=== PATIENT | female | born 1955 | race Caucasian/White ===

== ENCOUNTER 2016-11-18 19:14 | Observation (INO) | payer MEDICARE, OTHER ==
[~2016-11-18] VITALS: Ht 157.5 cm; Wt 75.7 kg
[~2016-11-18 19:14] MED LIST: FETZIMA20 M1 PO; FETZIMA40 M1 PO; LEVOTHYROXINE75 MCG PO; LISINOPRIL10 M1 PO; LITHIUM CARBON300 M4 PO; OLANZAPINE10 M1 PO; OXYBUTYNIN CHLO10 M1 PO; PROPRANOLOL HCL10 M1 PO; SIMVASTATIN80 M1 PO; TRAZODONE HCL100 M1 PO; VITAMIN D1000 UNIT PO
--- NOTE | 2016-11-18 20:19 | ED INFLUENZA/URI COMPLAINT ---
History of Present Illness General Chief Complaint: General Adult Stated Complaint: PER BROTHER VOMITING, DEHYDRATION? Source: patient, family Exam Limitations: no limitations Vital Signs & Intake/Output Vital Signs & Intake/Output Vital Signs Date Time Temp Pulse Resp B/P Pulse O2 O2 Flow FiO2 Ox Delivery Rate 11/19 0745 98.9 110 18 163/90 99 Room Air 11/19 0534 97.9 97 18 147/73 96 11/19 0300 98.9 102 18 140/89 5 11/19 0052 99.6 105 20 158/74 98 Room Air 11/18 2209 99.4 109 18 136/81 100 Room Air 11/18 2017 119 132/97 11/18 1952 96.8 124 26 97 Room Air ED Intake and Output 11/19 0000 11/18 1200 Intake Total 1000 Output Total Balance 1000 Intake, IV 1000 Patient 167 lb Weight Allergies Coded Allergies: Penicillins (Mild, "CHILDHOOD RASH" 11/18/16) Triage Note: TRIAGE: PT TO ER WITH BROTHER C/C N/V X 2 DAYS. PT STATES SHE FEELS WEAK. BROTHER STATES SHE HAS BEEN UNABLE TO TOLERATE ANYTHING PO AND IS PROBABLY DEHYDRATED. DENIES DIARRHEA. DENIES URINARY S/S. DENIES ABDOMINAL PAIN. UNABLE TO OBTAIN MANUAL OR AUTOMATIC B/P AT TRIAGE. ELECTRICIAN YARD AWARE OF SAME. Triage Nurses Notes Reviewed? yes HPI: This patient is a 61-year-old female who presented to the emergency department today accompanied by her brother for evaluation of nausea and vomiting. The patient reported that her symptoms began yesterday. She reported that she has been vomiting, "all day long." She denied any blood in the vomitus. She reported that she has not had anything to eat or drink in almost 2 days. She reported feeling weak. The patient denied any fevers, chills, difficulty breathing, abdominal pain, or any urinary symptoms. She reported that she was having some chest pain earlier in the day, but not currently. (EMMETT ENGLE,JAM) Reconcile Medications Cholecalciferol (Vitamin D3) (Vitamin D) 1,000 UNIT TABLET 2 TAB PO DAILY SUPPLEMENT (Reported) Desvenlafaxine Succinate (Pristiq ER) 100 MG TAB.ER.24H 1 TAB PO DAILY MENTAL HEALTH (Reported) Hyoscyamine Sulfate (Levsin-Sl) 0.125 MG TAB.SUBL 1-2 TAB SL Q4P PRN abdominal cramps Levothyroxine Sodium 75 MCG TABLET 1 TAB PO DAILY HYPOTHYROID (Reported) Lisinopril 10 MG TABLET 1 TAB PO DAILY HEART HEALTH (Reported) Mirtazapine 15 MG TABLET 1 TAB PO QPM MENTAL HEALTH (Reported) Ondansetron (Zofran Odt) 4 MG TAB.RAPDIS 1 TAB SL TID PRN nausea Oxybutynin Chloride (Oxybutynin Chloride ER) 10 MG TAB.ER.24 1 TAB PO DAILY BLADDER HEALTH (Reported) Propranolol HCl 10 MG TABLET 1 TAB PO QPM TREMORS (Reported) Quetiapine Fumarate 200 MG TABLET 1 TAB PO QPM MENTAL HEALTH (Reported) Simvastatin (Simvastatin*) 80 MG TABLET 1 TAB PO DAILY CHOLESTEROL HEALTH ( Reported) Trazodone HCl 50 MG TABLET 1 TAB PO QPM MENTAL HEALTH (Reported) Zolpidem Tartrate 5 MG TABLET 2 TAB PO QHS SLEEP (Reported) (MIKAEL TEJADA,JER) Past History Travel History Traveled to [place] past 21 day No Medical History Any Pertinent Medical History? see below for history Neurological: seizure (?details unclear from history) EENT: NONE Cardiovascular: hypertension, hyperlipidemia Respiratory: obstructive sleep apnea (uses CPAP), USES CPAP Gastrointestinal: NONE Hepatic: NONE Renal: S/P Acute renal failure in early 07/2016 related to too high a prescribed dose of Colona (900mg daily instead of only 600mg/day or less); resolved on medical floor Musculoskeletal: NONE Psychiatric: bipolar disease, insomnia Endocrine: hypothyroidism, S/P recent hypercalcemia secondary to Colona, per endocrine (Dr. Roberts) Blood Disorders: NONE Cancer(s): NONE NURSING SCHEDULER/Reproductive: NONE History of MRSA: No History of VRE: No History of CDIFF: No Influenza Vaccine: 07/13/15 Surgical History Surgical History: non-contributory Psychosocial History Who do you live with Brother Services at Home None What is your primary language Frisian Tobacco Use: Never used ETOH Use: denies use Illicit Drug Use: denies illicit drug use Family History Family History, If Any: grandfather Myocardial infarction Hx Contributory? No (EMMETT ENGLE,JAM) Review of Systems Review of Systems Constitutional: Reports: see HPI. EENTM: Reports: no symptoms. Respiratory: Reports: no symptoms. Cardiovascular: Reports: see HPI. GI: Reports: see HPI. Genitourinary: Reports: no symptoms. Musculoskeletal: Reports: no symptoms. Skin: Reports: no symptoms. Neurological/Psychological: Reports: no symptoms. All Other Systems: Reviewed and Negative (JAM CHRISTINE PA-C) Physical Exam Physical Exam Ears, Nose, Throat: normal ENT inspection, hearing grossly normal, pharynx normal, dry mucous membranes Comments: Well-developed well-nourished person in mild distress HEENT: PERRLA bilaterally Nose is atraumatic. Neck: Supple. No lymphadenopathy Back: Normal inspection Cardiovascular: Tachycardic with a regular rhythm without murmurs Respiratory: Chest nontender. No respiratory distress. Breath sounds clear to auscultation bilaterally with no wheezes, rales, rhonchi Abdomen: Soft, nontender and nondistended with normoactive bowel sounds in organomegaly. No peritoneal signs. No rebound or guarding Extremity: Normal and equal pulses. Neuro: Alert oriented x3, cranial nerves II through XII grossly intact. Skin: No appreciable rash on exposed skin, skin is warm and dry. Psych: Mood and affect is normal Core Measures Severe Sepsis Present: No Septic Shock Present: No (JAM CHRISTINE PA-C) Progress Differential Diagnosis: influenza, neutropenia, otitis, pneumonia, pharyngitis, sinusitis Plan of Care: Orders Procedure Date/time Status Clear Liquid Diet 11/19 B Active Discharge Patient 11/19 1006 Active TROPONIN LEVEL 11/19 0355 Complete LACTIC ACID 11/[address] in observation 11/19 0027 Active Patient Data 11/19 26 Active Code Status 11/19 0027 Active Intake & Output 11/18 2322 Active LACTIC ACID 11/18 2320 Complete EKG 11/18 2052 Active RAPID VIRAL INFLUENZA A 11/18 2019 Complete TROPONIN LEVEL 11/18 2019 Complete MAGNESIUM 11/18 2019 Complete LIPASE 11/18 2019 Complete DIRECT BILIRUBIN 11/18 2019 Complete COMPREHENSIVE METABOLIC PANEL 11/18 2019 Complete CBC WITHOUT DIFFERENTIAL 11/18 2019 Complete AMYLASE 11/18 2019 Complete Laboratory Tests 11/19/16 0402: Troponin I 0.05 11/19/16 0402: Lactic Acid 2.1 11/19/16 0013: Lactic Acid 4.0 H 11/18/16 2141: Anion Gap 20 H, Estimated GFR 46 L, BUN/Creatinine Ratio 24.2, Glucose 191 H, Calcium 11.3 H, Magnesium 2.3, Total Bilirubin 0.5, Direct Bilirubin 0.3, AST 20, ALT 32, Alkaline Phosphatase 105, Troponin I 0.04, Total Protein 7.9, Albumin 4.8, Globulin 3.1, Albumin/Globulin Ratio 1.5, Amylase 68, Lipase 133, CBC w Diff NO MAN DIFF REQ, RBC 6.41 H, MCV 73.8 L, MCH 23.5 L, RDW 16.9 H, MPV 8.9, Gran % 90.0 H, Lymphocytes % 3.0 L, Monocytes % 6.9, Eosinophils % 0, Basophils % 0.1, Absolute Granulocytes 11.6 H, Absolute Lymphocytes 0.4 L, Absolute Monocytes 0.9 H, Absolute Eosinophils 0, Absolute Basophils 0, PUBS MCHC 31.9 L 11/18/162125: Magnesium Cancelled 11/18/162052: Troponin I Cancelled Diagnostic Imaging: Viewed by Me: Radiology Read. Discussed w/RAD: Radiology Read. Radiology Impression: PATIENT: RADHA MCNEAL PRESENT AGE: 61 PATIENT ACCOUNT NO: [id number] : 59 LOCATION: [facility] ORDERING PHYSICIAN: JAM CHRISTINE PA-C SERVICE DATE: 11/18/16 EXAM TYPE: RAD - XRY-PORTABLE CHEST XRAY EXAMINATION: XR PORTABLE CHEST CLINICAL INFORMATION: Chest pain. Nausea. Vomiting. COMPARISON: Chest x-ray 09/30/2012 TECHNIQUE: Portable AP portable view of the chest was obtained. 9:44 PM FINDINGS: There are 2 adjacent radiopaque about 1 cm foreign bodies projecting over the mid chest and EKG lead over the upper chest. There is a large hiatal hernia present. Heart size is normal. No pulmonary vascular congestion. No pleural effusion or pneumothorax. IMPRESSION: Heart size is normal. Lungs are clear. DICTATED BY: WILDER BOSS MD DATE/TIME DICTATED:11/18/162224 CHIEF POWER DISPATCHER:PRABHJOT DATE/TIME TRANSCRIBED:11/18/162224 CONFIDENTIAL, DO NOT COPY WITHOUT APPROPRIATE AUTHORIZATION. <Electronically signed in Other Vendor System> SIGNED BY: WILDER BOSS MD 11/18/162229 Initial ED EKG: normal intervals, nonspecific ST T wave chg, 117 beats minute, sinus tachycardia, ST depressions in leads V3, V4, and V5 Hand-Off Endorsed To: TONY TEJADA,MESERET [place] Pending: labs, other Comments: 11/18/2016 11:29:02 PM: I was at this patient's bedside for reevaluation. She is still feeling nauseous. Due to this patient's EKG changes, I discussed this patient with Dr. Pineda who agreed with the plan to have this patient stated this here in the emergency department for observation, repeat troponin level, repeat EKG, gentle hydration, and antibiotics. (EMMETT ENGLE,JAM) Radiology Impression: PATIENT: RADHA MCNEAL PRESENT AGE: 61 PATIENT ACCOUNT NO: [id number] : 59 LOCATION: [facility] ORDERING PHYSICIAN: MESERET PINEDA MD SERVICE DATE: 11/19/16 EXAM TYPE: CAT - CT ABD & PELVIS W/O IV CONTRAS EXAMINATION: CT ABDOMEN AND PELVIS WITHOUT CONTRAST CLINICAL INFORMATION: Vomiting. Elevated lactic acid. COMPARISON: 05/25 TECHNIQUE: Multidetector volumetric imaging was performed from the superior aspect of the liver through the pubic symphysis. Sagittal and coronal reformatted images were obtained on the technologist's workstation. DLP: 314 mGy -cm FINDINGS: LUNG BASES: The visualized lung bases are unremarkable. LIVER, GALLBLADDER, AND BILIARY TREE: The liver is normal in size, shape, and attenuation. No focal hepatic lesion or biliary ductal dilatation is present. The gallbladder is unremarkable with no evidence of radiopaque gallstones, gallbladder wall thickening, or obvious pericholecystic inflammatory changes. PANCREAS: Unremarkable. SPLEEN: Unremarkable. ADRENAL GLANDS: Unremarkable. KIDNEYS AND URETERS: The kidneys are normal in size, shape, and attenuation. No hydronephrosis, hydroureter, or calculi seen. No perinephric stranding. BLADDER: The bladder is distended without wall thickening. GASTROINTESTINAL TRACT: Moderate hiatal hernia. The small bowel appears unremarkable. No obstruction. Normal appendix. No colonic wall thickening or inflammatory change. No free air or free fluid. ABDOMINAL WALL: No significant hernia is appreciated. LYMPH NODES : Normal. VASCULAR: Unremarkable. PELVIC VISCERA: The uterus appears atrophic. No adnexal mass. OSSEOUS STRUCTURES: No acute or suspicious osseous abnormality. Mild degenerative changes of the spine and hips. IMPRESSION: No acute finding of the abdomen or pelvis. No acute inflammatory changes. Moderate hiatal hernia. Significantly distended bladder. No wall thickening. DICTATED BY: JOSE HUBER MD DATE/TIME DICTATED:11/19/16407 CHIEF POWER DISPATCHER:PRABHJOT DATE/TIME TRANSCRIBED:11/19/16407 CONFIDENTIAL, DO NOT COPY WITHOUT APPROPRIATE AUTHORIZATION. <Electronically signed in Other Vendor System> SIGNED BY: JOSE HUBER MD 11/19/16 0414 Hand-Off Endorsed To: JER YOUSSEF MD Endorsed Time: 07 Pending: other (RE-EVAL) (MESERET PINEDA MD) Departure Departure Disposition: HOME OR SELF CARE Condition: Stable Referrals: MALIKA JIANG M.D. (PCP/Family) Departure Forms: Customer Survey General Discharge Information Observation Note Spoke With: MESERET PINEDA MD Physician Advisor Notified: MESERET PINEDA MD Place Patient In: ED Observation Rationale for Observation: My rational for observation is as follows [this patient is a 61-year-old female who presented to the emergency department today for evaluation of nausea and vomiting. EKG changes noted. Troponin 0.04. Elevated white blood cell count. This patient is still actively vomiting here in the emergency department. She should stay in ED observation overnight for gentle hydration with IV fluids, IV antiemetics, trend labs, serial troponins, serial EKGs, and close monitoring. Premature discharge could prove medically harmful.]. (EMMETT ENGLE,JAM) PA/TUBE CLEANING OPERATOR Co-Sign Statement Statement: ED Attending supervision documentation- [X] I saw and evaluated the patient. I have also reviewed all the pertinent lab results and diagnostic results. I agree with the findings and the plan of care as documented in the PA's/TUBE CLEANING OPERATOR's documentation. [X] I have reviewed the ED Record and agree with the PA's/TUBE CLEANING OPERATOR's documentation. [] Additions or exceptions (if any) to the PAs/TUBE CLEANING OPERATOR's note and plan are summarized below: [] (MESERET PINEDA MD) Departure Time of Disposition: 1004 Clinical Impression Primary Impression: Viral syndrome Secondary Impressions: Generalized anxiety disorder Additional Instructions: Clear liquids for 12-24 hours in small amounts until better. SURE TO STAY HYDRATED. FOLLOW-UP WITH YOUR PRIMARY CARE PHYSICIAN. RETURN FOR ANY WORSENING SYMPTOMS RO CONCERNS. Prescriptions: Current Visit Scripts Ondansetron (Zofran Odt) 1 TAB SL TID PRN nausea #15 TAB Hyoscyamine Sulfate (Levsin-Sl) 1-2 TAB SL Q4P PRN abdominal cramps #30 TAB (JER YOUSSEF MD) ED Attending Observation Initial Observation Note: I have seen and personally examined RADHA MCNEAL on 11/19/16 at 0027. I agree with the current emergency department documentation. The disposition (admission or discharge) is uncertain at this time, she needs a period of observation for the following reason(s): [Telemetry monitoring with serial enzymes and IV hydration. Patient has an abnormal EKG. If her troponin turned positive she'll require admission for cardiology consultation. If her troponin remains negative the patient will be table for discharge with outpatient management. Patient is also dehydrated and requiring IV fluids. We'll reevaluate to see if the patient is stable for discharge after 2 more liters of fluid.] The ED Nurse caring for this patient has been personally informed as to what the patient is being observed for. Observation Re-Evaluation: I have reevaluated RADHA MCNEAL on 11/19/16 at 0217. The physical findings that support the continued need to observe this patient include [patient continues to have dry heaving. Patient's lactic acid is 4.0 and she has an elevated anion gap. Her creatinine is 1.2 with a decreased GFR. Patient given IV Zofran. Patient continues to be hydrated. Patient going over for CAT scan of her abdomen and pelvis. She still has active bowel sounds. Her abdomen is soft and nontender.]. (TONY TEJADA,MESERET [place]) Observation Re-Evaluation: I have reevaluated RADHA MCNEAL on 11/19/16 at 0844. The physical findings that support the continued need to observe this patient include able to tolerate clear liquids but still reports feeling sick.. Observation Discharge: I have reevaluated RADHA MCNEAL on 11/19/16 at 1003. The patient is: (x): Stable for discharge (): To be admitted to Nursing Floor (): To be placed in Observation on Nursing Floor (): For transfer to other facility The patient was being observed for n/v/dehydration, anxiety As a result of that observation, I have determined that the patient may return home with clear liquid diet antiemetics. (JER YOUSSEF MD)
[2016-11-18] MEDS ORDERED: MIRTAZAPINE15 M2 PO (20:25)
[2016-11-18] MEDS ORDERED: ZOLPIDEM TARTRAT5 M1 PO (20:26)
[2016-11-18] MEDS ORDERED: QUETIAPINE FUM200 M1 PO (20:26)
[2016-11-18] MEDS ORDERED: TRAZODONE HCL50 M1 PO (20:26)
[2016-11-18] MEDS ORDERED: PRISTIQ ER100 MG PO (20:28)
[2016-11-18 21:50] LABS: ABSOLUTE BASOPHIL COUNT 0 /CUMM (0.0-0.2); ABSOLUTE EOSINOPHIL COUNT 0 /CUMM (0.0-0.7); ABSOLUTE GRANULOCYTE CT 11.6 /CUMM (1.4-6.5); ABSOLUTE LYMPH COUNT 0.4 /CUMM (1.2-3.4); ABSOLUTE MONOCYTE COUNT 0.9 /CUMM (0.10-0.60); BASOPHIL % 0.1 % (0.0-2.0); EOSINOPHIL % 0 % (0-5); HEMATOCRIT 47.3 % (37-47); MEAN CORPUSCULAR HGB 23.5 PG (27.0-31.0); MEAN CORPUSCULAR HGB CONC 31.9 G/DL (33.0-37.0); MEAN CORPUSCULAR VOLUME 73.8 FL (81.0-99.0); MEAN PLATELET VOLUME 8.9 FL (7.4-10.4); PLATELET COUNT 378 /CUMM (130-400); RBC DISTRIBUTION WIDTH 16.9 % (11.5-14.5); RED BLOOD CELL CT 6.41 /CUMM (4.20-5.40); WHITE BLOOD CELL COUNT 12.9 /CUMM (4.8-10.8)
--- NOTE | 2016-11-18 22:30 | RADIOLOGY REPORT ---
EXAMINATION: XR PORTABLE CHEST CLINICAL INFORMATION: Chest pain. Nausea. Vomiting. COMPARISON: Chest x-ray 09/30/2012 TECHNIQUE: Portable AP portable view of the chest was obtained. 9:44 PM FINDINGS: There are 2 adjacent radiopaque about 1 cm foreign bodies projecting over the mid chest and EKG lead over the upper chest. There is a large hiatal hernia present. Heart size is normal. No pulmonary vascular congestion. No pleural effusion or pneumothorax. IMPRESSION: Heart size is normal. Lungs are clear.
--- NOTE | 2016-11-19 04:14 | CT SCAN REPORT ---
EXAMINATION: CT ABDOMEN AND PELVIS WITHOUT CONTRAST CLINICAL INFORMATION: Vomiting. Elevated lactic acid. COMPARISON: 05/25/2007 TECHNIQUE: Multidetector volumetric imaging was performed from the superior aspect of the liver through the pubic symphysis. Sagittal and coronal reformatted images were obtained on the technologist's workstation. DLP: 314 mGy-cm FINDINGS: LUNG BASES: The visualized lung bases are unremarkable. LIVER, GALLBLADDER, AND BILIARY TREE: The liver is normal in size, shape, and attenuation. No focal hepatic lesion or biliary ductal dilatation is present. The gallbladder is unremarkable with no evidence of radiopaque gallstones, gallbladder wall thickening, or obvious pericholecystic inflammatory changes. PANCREAS: Unremarkable. SPLEEN: Unremarkable. ADRENAL GLANDS: Unremarkable. KIDNEYS AND URETERS: The kidneys are normal in size, shape, and attenuation. No hydronephrosis, hydroureter, or calculi seen. No perinephric stranding. BLADDER: The bladder is distended without wall thickening. GASTROINTESTINAL TRACT: Moderate hiatal hernia. The small bowel appears unremarkable. No obstruction. Normal appendix. No colonic wall thickening or inflammatory change. No free air or free fluid. ABDOMINAL WALL: No significant hernia is appreciated. LYMPH NODES: Normal. VASCULAR: Unremarkable. PELVIC VISCERA: The uterus appears atrophic. No adnexal mass. OSSEOUS STRUCTURES: No acute or suspicious osseous abnormality. Mild degenerative changes of the spine and hips. IMPRESSION: No acute finding of the abdomen or pelvis. No acute inflammatory changes. Moderate hiatal hernia. Significantly distended bladder. No wall thickening.
[2016-11-19] MEDS ORDERED: ZOFRAN ODT4 M1 SL (10:05)
[2016-11-19] MEDS ORDERED: LEVSIN-SL0.125 MG SL (10:05)
[2016-11-19 10:16] VITALS: BP 145/74
== END 2016-11-19 10:17 ==
LOC: ERH 19:14 → ERHI 11-19 01:12 → CMPBEDREQ 11-19 01:20 → ERHI 11-19 10:17
PROVIDERS: Physician Assistant; ADMIT Emergency Medicine
DX: B34.9 Viral infection, unspecified (principal); R11.2 Nausea with vomiting, unspecified; I10 Essential (primary) hypertension; E78.5 Hyperlipidemia, unspecified; F41.9 Anxiety disorder, unspecified; G47.33 Obstructive sleep apnea (adult) (pediatric); E03.9 Hypothyroidism, unspecified; E86.0 Dehydration
CPT/HCPCS: 6090; 74176; 87804; 87804-59; 93005; 93010; 96361; 96374; 96375; 96376; G0378; J2405; J2765

== ENCOUNTER 2016-11-28 19:11 | Inpatient (IN) | payer OTHER ==
[~2016-11-28] VITALS: Ht 157.5 cm; Wt 70.4 kg
[~2016-11-28 19:11] MED LIST changes: +LEVSIN-SL0.125 MG SL; +MIRTAZAPINE15 M2 PO; +PRISTIQ ER100 MG PO; +QUETIAPINE FUM200 M1 PO; +TRAZODONE HCL50 M1 PO; +ZOFRAN ODT4 M1 SL; +ZOLPIDEM TARTRAT5 M1 PO
--- NOTE | 2016-11-28 19:43 | ED PSYCHIATRIC COMPLAINT ---
History of Present Illness General Chief Complaint: Psychiatric Related Complaint Stated Complaint: PSYCH Source: patient, old records, EMS Exam Limitations: clinical condition, poor historian Vital Signs & Intake/Output Vital Signs & Intake/Output Vital Signs Date Time Temp Pulse Resp B/P Pulse O2 O2 Flow FiO2 Ox Delivery Rate 11/29 1319 99.3 100 18 155/86 98 Room Air 11/29 0917 99.0 100 16 153/94 97 Room Air 11/29 0631 98.4 121 20 145/91 95 Room Air 11/29 0630 Room Air 11/29 0430 99.7 100 18 158/104 95 Room Air 11/28 2213 99.8 98 18 158/88 98 Room Air 11/28 1921 99.9 103 17 162/87 97 Room Air ED Intake and Output 11/29 0000 11/28 1200 Intake Total Output Total Balance Patient 210 lb Weight Allergies Coded Allergies: Penicillins (Mild, "CHILDHOOD RASH" 11/18/16) Reconcile Medications Cholecalciferol (Vitamin D3) (Vitamin D) 1,000 UNIT TABLET 2 TAB PO DAILY SUPPLEMENT (Reported) Desvenlafaxine Succinate (Pristiq ER) 100 MG TAB.ER.24H 1 TAB PO QPM MENTAL HEALTH (Reported) Levothyroxine Sodium 75 MCG TABLET 1 TAB PO QAM HYPOTHYROID (Reported) Lisinopril 10 MG TABLET 1 TAB PO QAM HEART HEALTH (Reported) Mirtazapine 15 MG TABLET 1 TAB PO QPM MENTAL HEALTH (Reported) Oxybutynin Chloride (Oxybutynin Chloride ER) 10 MG TAB.ER.24 1 TAB PO QAM BLADDER HEALTH (Reported) Propranolol HCl 10 MG TABLET 1 TAB PO QPM TREMORS (Reported) Quetiapine Fumarate 200 MG TABLET 1 TAB PO QPM MENTAL HEALTH (Reported) Simvastatin (Simvastatin*) 80 MG TABLET 1 TAB PO QPM CHOLESTEROL HEALTH ( Reported) Trazodone HCl 50 MG TABLET 1 TAB PO QPM MENTAL HEALTH (Reported) Zolpidem Tartrate 5 MG TABLET 1-2 TAB PO QHS SLEEP (Reported) Triage Note: PT ABELARDO FROM HOME C/O PT WAS BROUGHT HERE ON A PEC FROM PD STATING THAT SHE WAS FOUND ON HER STREET FOR 3 HOURS IN HER CAR SITTING THERE AND STATING SHE DID NOT KNOW HOW TO GET HOME. THIS RN SPOKE WITH PT AND MOVED PT TO [facility] FOR MEDICAL EVAL. PT STATES HER STOMACH HURTS AND SHE TOOK PILLS BUT DOES NOT REMEMBER WHAT TIME, WHAT PILLS, OR WHAT IS HAPPENING. PT IS A&0X3. AWAITING PROVIDER EVAL. PT PLACED ON MONITOR. Triage Nurses Notes Reviewed? yes Onset: Just prior to arrival Duration: hour(s):, constant, continues in ED Timing: recent history Severity: severe Associated Symptoms: impaired concentration LMP (ages 10-50): hysterectomy : No Patient currently breastfeeds: No HPI: Patient was observed sitting in her car for several hours observed by her neighbor. She has slow mentation of verbalizes being sad and depressed wanting to without a specific plan. She denies fever chills nausea vomiting diarrhea abdominal pain chest pain shortness of breath headache dysuria rash bleeding. Crisis collateral information reviewed. (JER YOUSSEF MD) Past History Travel History Traveled to [place] past 21 day No Medical History Any Pertinent Medical History? see below for history Neurological: seizure (?details unclear from history) EENT: NONE Cardiovascular: hypertension, hyperlipidemia Respiratory: obstructive sleep apnea (uses CPAP), USES CPAP Gastrointestinal: NONE Hepatic: NONE Renal: S/P Acute renal failure in early 07/2016 related to too high a prescribed dose of [place] (900mg daily instead of only 600mg/day or less); resolved on medical floor Musculoskeletal: NONE Psychiatric: bipolar disease, insomnia Endocrine: hypothyroidism, S/P recent hypercalcemia secondary to [place], per endocrine (Dr. 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 No (JER YOUSSEF MD) Review of Systems Review of Systems Constitutional: Reports: no symptoms. EENTM: Reports: no symptoms. Respiratory: Reports: no symptoms. Cardiovascular: Reports: no symptoms. GI: Reports: no symptoms. Genitourinary: Reports: no symptoms. Musculoskeletal: Reports: no symptoms. Skin: Reports: no symptoms. Neurological/Psychological: Reports: see HPI, cognitive dysfunction, confusion, depressed. Hematologic/Endocrine: Reports: no symptoms. Immunologic/Allergic: Reports: no symptoms. All Other Systems: Reviewed and Negative (JER YOUSSEF MD) Physical Exam Physical Exam General Appearance: well developed/nourished, alert, awake, moderate distress Head: atraumatic Eyes: Bilateral: PERRL, EOMI. 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 yes 1 Depression/Hopelessness? yes 2 Previous Attempts/Psych Care yes 1 Rational Thinking Loss? yes 2 Single//? yes 1 Social Support? has support 0 Stated Future Intent? yes 2 Total 9 SAD PERSONS Done? yes (JER YOUSSEF MD) Progress Differential Diagnosis: drug intoxication, drug overdose, drug withdrawal, electrolyte abnormality, hypoglycemia Plan of Care: Orders Procedure Date/time Status Regular Diet 11/29 L Active Regular Diet 11/29 B Complete Admit to inpatient psych 11/29 1322 Active CULTURE,URINE 11/29 1322 Active BASIC METABOLIC PANEL 11/29 1322 Active Patient Data - inpatient psych 11/29 1045 Active Admit to inpatient psych 11/29 1045 Active Add-on Test (ER Only) 11/29 1021 Active URINE DRUG SCREEN FOR ER ONLY 11/29 0857 Complete URINALYSIS 11/29 0850 Complete Continuous Observation Monitor 11/29 0335 Active Add-on Test (ER Only) 11/29 0004 Active Vital Signs 11/29 UNK Active Nursing Misc 11/29 UNK Active Alternative Nursing Therapy 11/29 UNK Active Activity/Ambulation 11/29 UNK Active Continuous Observation Monitor 11/28 2335 Active TSH REFLEX 11/28 2004 Complete Continuous Observation Monitor 11/28 1941 Active ETHANOL 11/28 194 Complete COMPREHENSIVE METABOLIC PANEL 11/28 194 Complete CBC WITHOUT DIFFERENTIAL 11/28 1940 Complete ED CRISIS PSYCH CONSULT 11/28 194 Active Laboratory Tests 11/29/16 0850: Urine Opiates Screen < 100.00, Methadone Screen 69, Barbiturate Screen < 60, Ur Phencyclidine Scrn 7.00, Amphetamines Screen < 100, U Benzodiazepines Scrn < 85, Urine Cocaine Screen < 50, Urine Cannabis Screen < 5.00, Urine Color YEL, Urine Clarity CLEAR, Urine pH 6.0, Ur Specific [place] 1.025, Urine Protein TRACE H, Urine Ketones >=80, Urine Nitrite NEG, Urine Bilirubin NEG, Urine Urobilinogen 1.0, Ur Leukocyte Esterase TRACE H, Ur Microscopic SEDIMENT EXAMINED, Urine RBC RARE, Urine WBC RARE, Hyaline Casts RARE H, Urine Mucus RARE, Urine Hemoglobin NEG, Urine Glucose NEG 11/28/16 2004: Anion Gap 18 H, Estimated GFR > 60, BUN/Creatinine Ratio 8.8, Glucose 97, Calcium 10.1, Total Bilirubin 0.7, AST 22, ALT 32, Alkaline Phosphatase 81, Total Protein 6.5, Albumin 3.9, Globulin 2.6, Albumin/Globulin Ratio 1.5, TSH & T3 &Free T4 Intrp 0.897, CBC w Diff NO MAN DIFF REQ, RBC 5.46 H, MCV 72.9 L, MCH 23.7 L, RDW 17.1 H, MPV 8.6, Gran % 82.8 H, Lymphocytes % 10.3 L, Monocytes % 6.8, Eosinophils % 0, Basophils % 0.1, Absolute Granulocytes 7.5 H, Absolute Lymphocytes 0.9 L, Absolute Monocytes 0.6, Absolute Eosinophils 0, Absolute Basophils 0, PUBS MCHC 32.5 L, Serum Alcohol < 10.0 7:10 AM PATIENT SIGNED OUT TO ME BY DR YOUSSEF. PENDING CRISIS EVALUATION. NS ,POTASSIUM ORDERED. (ADRIEN LOVETT MD) Diagnostic Imaging: Viewed by Me: CT Scan. Discussed w/RAD: CT Scan. Radiology Impression: no acute abnormality, no fracture Hand-Off Endorsed To: ADRIEN LOVETT MD Endorsed Time: 0700 Pending: consult, labs (utox) (JER YOUSSEF MD) Departure Departure Disposition: STILL A PATIENT Condition: Stable Referrals: MALIKA JIANG M.D. (PCP/Family) Departure Forms: Customer Survey General Discharge Information (JER YOUSSEF MD) Departure Time of Disposition: 1322 Clinical Impression Primary Impression: Bipolar disorder current episode depressed Qualifiers: Current episode severity: unspecified Qualified Code: F31.30 - Bipolar disorder, current episode depressed, mild or moderate severity, unspecified Secondary Impressions: Hypokalemia Psych Admission Note Psychiatric Admission: I have seen and evaluated DEVENDRAJessyRADHA. I have also reviewed all the pertinent lab results and diagnostic results. RADHA MCNEAL will be admitted to our inpatient Psychiatric unit for treatment and care. (BONY TEJADA,ADRIEN)
[2016-11-28 20:21] LABS: ABSOLUTE BASOPHIL COUNT 0 /CUMM (0.0-0.2); ABSOLUTE EOSINOPHIL COUNT 0 /CUMM (0.0-0.7); ABSOLUTE GRANULOCYTE CT 7.5 /CUMM (1.4-6.5); ABSOLUTE LYMPH COUNT 0.9 /CUMM (1.2-3.4); ABSOLUTE MONOCYTE COUNT 0.6 /CUMM (0.10-0.60); BASOPHIL % 0.1 % (0.0-2.0); EOSINOPHIL % 0 % (0-5); GRANULOCYTE % 82.8 % (42.2-75.2); HEMATOCRIT 39.8 % (37-47); MEAN CORPUSCULAR HGB 23.7 PG (27.0-31.0); MEAN CORPUSCULAR HGB CONC 32.5 G/DL (33.0-37.0); MEAN CORPUSCULAR VOLUME 72.9 FL (81.0-99.0); MEAN PLATELET VOLUME 8.6 FL (7.4-10.4); PLATELET COUNT 336 /CUMM (130-400); RBC DISTRIBUTION WIDTH 17.1 % (11.5-14.5); RED BLOOD CELL CT 5.46 /CUMM (4.20-5.40); WHITE BLOOD CELL COUNT 9.1 /CUMM (4.8-10.8)
--- NOTE | 2016-11-28 21:24 | ED PSY CRISIS COLLATERAL NOTE ---
Collateral Note Collateral Note Family/Inform/Michael Contacts: Crisis met with patients brother Simone ([phone]), sister Madie ([phone]), and brother in law Micheal ([phone]). Patient resides with her brother Simone, and he was informed today when he got home from work, that their neighbor called the [employer] today because they found patient sitting in her car parked on the side of their street for 2-3 hours. Patients sister received call from Rahul JONES that she was being brought to ED due to being found disoriented. Simone reports that about 10 days ago patient was seen at ED due to flu symptoms and since then has been very isolative at home and has not left the house up until today. He encouraged her to atleast go out to get groceries or visit their mother today. Patient did end up leaving the house today and then Simone left for work. Patient has poor memory of today and does not recall her neighbor finding her on the side of the road. Patients family reports that patient has no hx of similar behaviors. She is currently in treatment with Dr. Carballo at OP and is med compliant.
--- NOTE | 2016-11-28 23:10 | CT SCAN REPORT ---
EXAMINATION: CT HEAD WITHOUT CONTRAST CLINICAL INFORMATION: Altered mental status COMPARISON: 08/05/2016 TECHNIQUE: Contiguous axial imaging was performed from the skull base to vertex without intravenous administration of contrast. DLP: 600.71 mGy-cm FINDINGS: There is no evidence of acute intracranial hemorrhage or territorial infarction. No abnormal mass effect or midline shift is seen. Thakkar to white matter differentiation is well preserved. No extra-axial fluid collections are identified. The ventricles are normal in size. There is mild periventricular white matter hypoattenuation consistent with chronic small vessel ischemic disease. The osseous structures and soft tissues are normal. The mastoid air cells and visualized portions of the paranasal sinuses are well aerated. IMPRESSION: No acute intracranial pathology.
--- NOTE | 2016-11-29 10:19 | ED PSYCH CRISIS CONSULTATION ---
Crisis Consult Basic Assessment Date of Consult: 11/29/16 Responsible Person/Accompanied By: Madie Wiggins sister and Gaston freitas Insurance Authorization: Insurance #1: Insurance name: [employer] MEDICARE COMPLETE Phone number: Policy number: [id number] Group number: [id number] Authorization number: ED Provider: Patient's ED Provider: JER YOUSSEF MD Primary Care Physician: Patient's PCP: MALIKA JIANG M.D. PCP's Phone Number: Current Psychiatrist: Abdiel Betancourt MD Chief Complaint: Psychiatric Related Extremely depressed S.I. Patient's Quote: "i'm ready to give up. I cant cope anymore" Present Illness: Patient is a 61 year old, never woman who was brought to the [facility] by her brother and sister after she had been seen sitting in her parked car for 3+ hours, and seemed confused. Patient says that she feels she is ready to give up and that she "cant take it anymore". Patient has been complaining a great deal lately about not feeling well, and having problems eating and sleeping, and feeling dehydrated all of the time. Patient had been admitted to [facility] several years ago with lithium toxicity, and thr Lithiumk was stopped, and patients family observed that she was doing better than she had been doing for many years, and was actually more animated. Patient reports that she has "fallen off" drastically, and that she has no self esteem, and feels unable to function anymore, and that she can contribute to nothing anymore Patient has had numerous hospitalizations in the past and most at [facility]. there have been more than 12. She has not required admission to in-patient unit for a few years, and benefitted from IOP following last admission. Patient focuses on somatic issues, and feels that :"I have gone into my isolated world again" Patient expresses suicidal ideation Patient's Address: [address] [place] [address] Other Phone Number: Who Do You Live With? Brother Family/Informants Interviewed: sister Madie Wiggins brother Gaston Adam Allergies - Coded Allergies: Penicillins (Mild, "CHILDHOOD RASH" 11/18/16) Current Medications - Scheduled Medications Cholecalciferol (Vitamin D3) (Vitamin D) 1,000 UNIT TABLET 2 TAB PO DAILY SUPPLEMENT (Reported) Entered as Reported by LUIS MCDONNELL on 07/20/16 1306 Desvenlafaxine Succinate (Pristiq ER) 100 MG TAB.ER.24H 1 TAB PO QPM MENTAL HEALTH #30 (Reported) Entered as Reported by ADRIANNA WILSON on 11/18/162027 Levothyroxine Sodium 75 MCG TABLET 1 TAB PO QAM HYPOTHYROID #30 (Reported) Entered as Reported by LUIS MCDONNELL on 07/20/16 1302 Lisinopril 10 MG TABLET 1 TAB PO QAM HEART HEALTH #30 (Reported) Entered as Reported by LUIS MCDONNELL on 07/20/16 1303 Mirtazapine 15 MG TABLET 1 TAB PO QPM MENTAL HEALTH #30 (Reported) Entered as Reported by ADRIANNA WILSON on 11/18/162024 Oxybutynin Chloride (Oxybutynin Chloride ER) 10 MG TAB.ER.24 1 TAB PO QAM BLADDER HEALTH #30 (Reported) Entered as Reported by LUIS MCDONNELL on 07/20/16 1304 Propranolol HCl 10 MG TABLET 1 TAB PO QPM TREMORS #30 (Reported) Entered as Reported by LUIS MCDONNELL on 07/20/16 1311 Quetiapine Fumarate 200 MG TABLET 1 TAB PO QPM MENTAL HEALTH #30 (Reported) Entered as Reported by ADRIANNA WILSON on 11/18/162025 Simvastatin (Simvastatin*) 80 MG TABLET 1 TAB PO QPM CHOLESTEROL HEALTH #30 ( Reported) Entered as Reported by LUIS MCDONNELL on 07/20/16 1306 Trazodone HCl 50 MG TABLET 1 TAB PO QPM MENTAL HEALTH #90 (Reported) Entered as Reported by ADRIANNA WILSON on 11/18/162025 Zolpidem Tartrate 5 MG TABLET 1-2 TAB PO QHS SLEEP #60 (Reported) Entered as Reported by ADRIANNA WILSON on 11/18/162025 Laboratory Results: Laboratory Tests 11/29/16 0850: Urine Opiates Screen < 100.00, Methadone Screen 69, Barbiturate Screen < 60, Ur Phencyclidine Scrn 7.00, Amphetamines Screen < 100, U Benzodiazepines Scrn < 85, Urine Cocaine Screen < 50, Urine Cannabis Screen < 5.00, Urine Color Pending, Urine Clarity Pending, Urine pH Pending, Ur Specific [place] Pending, Urine Protein Pending, Urine Ketones Pending, Urine Nitrite Pending, Urine Bilirubin Pending, Urine Urobilinogen Pending, Ur Leukocyte Esterase Pending, Ur Microscopic Pending, Urine Hemoglobin Pending, Urine Glucose Pending 11/28/16 2004: Anion Gap 18 H, Estimated GFR > 60, BUN/Creatinine Ratio 8.8, Glucose 97, Calcium 10.1, Total Bilirubin 0.7, AST 22, ALT 32, Alkaline Phosphatase 81, Total Protein 6.5, Albumin 3.9, Globulin 2.6, Albumin/Globulin Ratio 1.5, TSH & T3 &Free T4 Intrp 0.897, CBC w Diff NO MAN DIFF REQ, RBC 5.46 H, MCV 72.9 L, MCH 23.7 L, RDW 17.1 H, MPV 8.6, Gran % 82.8 H, Lymphocytes % 10.3 L, Monocytes % 6.8, Eosinophils % 0, Basophils % 0.1, Absolute Granulocytes 7.5 H, Absolute Lymphocytes 0.9 L, Absolute Monocytes 0.6, Absolute Eosinophils 0, Absolute Basophils 0, PUBS MCHC 32.5 L, Serum Alcohol < 10.0 Past History Past Medical History Neurological: seizure (?details unclear from history) EENT: NONE Cardiovascular: hypertension, hyperlipidemia Respiratory: obstructive sleep apnea (uses CPAP), USES CPAP Gastrointestinal: NONE Hepatic: NONE Renal: S/P Acute renal failure in early 07/2016 related to too high a prescribed dose of [place] (900mg daily instead of only 600mg/day or less); resolved on medical floor Musculoskeletal: NONE Psychiatric: bipolar disease, insomnia Endocrine: hypothyroidism, S/P recent hypercalcemia secondary to [place], per endocrine (Dr. 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 Response to Treatment has been helpful Diagnosis by History: Pipolar, depressed Schizoaffective Substance Use/Abuse History Drug Use/Abuse Substances Used/Abused No Substance Abuse Treatment Substance Abuse Treatment Past Substance Abuse [place] No Comments: no substances Current Mental Status Mental Status Orientation: Person, Place, Situation Affect: Anxious, Depressed, Hopeless, Lonely, Sad Speech: Pressured Neuro-vegetative: Appetite Decreased, Concentration Poor, Energy Decreased, Sleep Disturbance Appearance Appearance- Dress/Hygiene: disheveled Behaviors Thought Process: WNL Thought Content: Somatic, WNL Memory: WNL Insight: WNL SI/HI Risk Assessment Past Suicidal Ideation/Attempts Yes Current Suicidal Ideation/Att Yes Past Homicidal Ideation/Att: No Current Homicidal Ideation/Attempts No Degree of Intent: Plan Risk Factors: access to lethal means, high anxiety/distress, SA/MH hospitalized, isolate/no social support, limited support Lethality Ratin PTSD Checklist PTSD Done? pt unable to participate ED Management Sitter: Yes Restraints: No DSM5/PS Stressors/Medical Prob Diagnosis' (DSM 5, Stressors, Medical): Bipolar disorder, severe, depressed F31.4 Current GAF: 23 Comments: Patient has very despondent, self deprecating pattern Departure Disposition Psych Medical Clearance Date: 11/29/16 Medically Cleared at: 0915 Time Started: 0916 Time Ended: 1050 Psychiatrist Consulted: Abdiel Betancourt MD Time Disposition Established: 1100 Plan for Disposition - Modality: Inpatient Psychiatry Facility: [facility] Rationale for Disposition: Patient extremely despondent and suicidal Type of IP Admission: Voluntary Additional Instructions: feels a complete failure Referrals MALIKA JIANG M.D. (PCP/Family)
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
--- NOTE | 2016-11-29 11:54 | SOCIAL WORKER PROG NOTE PSYCH ---
Social Work Progress Note Progress Note Auth obtained for 4 days with review for Dec 02.... Auth # [id number] [place] [phone]
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
--- NOTE | 2016-11-29 13:48 | ED PSY CRISIS COLLATERAL NOTE ---
Collateral Note Collateral Note Family/Inform/Michael Contacts: Patient had been sent to [facility] on police paper due to "being lost, parked at corner of her street for 3 hours, and confused"
[2016-11-29 16:35] VITALS: BP 142/98
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
--- NOTE | 2016-11-29 19:01 | IP INCIDENTAL NOTE PSYCH ---
Incidental Note Notation: Mouth puckering movements may reflect dry mouth or tardive dyskinesia. If they persist, it may be necessary to taper Seroquel to off.
[2016-11-29 19:46] VITALS: BP 116/80
[2016-11-30 07:30] VITALS: BP 128/78
--- NOTE | 2016-11-30 11:05 | CP SOUTH PROGRESS NOTE PSYCH ---
Psych (Inpt) Progress Note Progress Note Include the following elements, when applicable: Involvement in the active treatment of the patient with behavioral observations of the patient and the patient's response to the treatment. Review of the ongoing treatment process in the context of the treatment plan. Indication of how multi-disciplinary staff members are carrying out the treatment plan. Plans for future interventions and recommendations for revision of the treatment plan. Liaison with other physicians/providers. Progress Note: Notes reviewed, d/w nursing staff. Interviewed patient this morning. Reports n/v yesterday that improved w/ zofran. No vomiting today. Stomach a bit queasy but tolerating copious PO liquids well, more hesitant on solids. SAys slept well, mood "pretty good" this morning, denies SI/HI. Denies med SEs. Alert and oriented to person, place, date, situation. Vitals reviewed and wnl. Labs reviewed, lytes drawn this morning wnl. MSE: mildly ill appearing thin WF wrapped in blanket ambulating steadily on unit. No abnormal mouth movements were noted on interview today. Cooperative with interview with good eye contact, speech wnl. Mood "alright", affect slightly constricted, congruent. TP log/sasha, TC wnl. Denies SI/HI. Denies perceptual disturbance. Cognition intact as above. I/J limited. A/P: Encourage PO intake. Continue to monitor mood and associated neurological or psychiatric sx's. Did not notice abnormal mvmts during interview today so will continue seroquel and re-evaluate tomorrow. Continue plan as per primary team.
[2016-11-30 11:50] VITALS: BP 109/71
--- NOTE | 2016-11-30 14:26 | History & Physical ---
General Information and HPI History of Present Illness: 61-year-old femalewith medical history significant forbipolar disorder, hypertension, dyslipidemia, hypothyroidism and history of lithium toxicity. Admitted to the inpatient psychiatric unit with complaints of worsening depression. Currently patient denies any medical symptoms. She did admit to an episode of vomiting yesterday following admission but denies any further episodes. Denies any nausea or vomiting presently. Denies any abdominal pain. Denies diarrhea or constipation. Denies bloody stools. Denies any ongoing history of nausea vomiting. Other 12 point review of systems noncontributory except for ongoing depression. Allergies/Medications Allergies: Coded Allergies: Penicillins (Mild, "CHILDHOOD RASH" 11/18/16) carbamazepine (From TEGRETOL) (RASH 11/29/16) lithium (toxicity 11/29/16) Home Med list Cholecalciferol (Vitamin D3) (Vitamin D) 1,000 UNIT TABLET 2 TAB PO DAILY SUPPLEMENT (Reported) Desvenlafaxine Succinate (Pristiq ER) 100 MG TAB.ER.24H 1 TAB PO QPM MENTAL HEALTH (Reported) Levothyroxine Sodium 75 MCG TABLET 1 TAB PO QAM HYPOTHYROID (Reported) Lisinopril 10 MG TABLET 1 TAB PO QAM HEART HEALTH (Reported) Mirtazapine 15 MG TABLET 1 TAB PO QPM MENTAL HEALTH (Reported) Oxybutynin Chloride (Oxybutynin Chloride ER) 10 MG TAB.ER.24 1 TAB PO QAM BLADDER HEALTH (Reported) Propranolol HCl 10 MG TABLET 1 TAB PO QPM TREMORS (Reported) Quetiapine Fumarate 200 MG TABLET 1 TAB PO QPM MENTAL HEALTH (Reported) Simvastatin (Simvastatin*) 80 MG TABLET 1 TAB PO QPM CHOLESTEROL HEALTH ( Reported) Trazodone HCl 50 MG TABLET 1 TAB PO QPM MENTAL HEALTH (Reported) Zolpidem Tartrate 5 MG TABLET 1-2 TAB PO QHS SLEEP (Reported) Past History Travel History Traveled to [place] past 21 day No Medical History Neurological: seizure (?details unclear from history) EENT: NONE Cardiovascular: hypertension, hyperlipidemia Respiratory: obstructive sleep apnea (uses CPAP), USES CPAP Gastrointestinal: NONE Hepatic: NONE Renal: S/P Acute renal failure in early 07/2016 related to too high a prescribed dose of Juliaetta (900mg daily instead of only 600mg/day or less); resolved on medical floor Musculoskeletal: NONE Psychiatric: bipolar disease, insomnia Endocrine: hypothyroidism, S/P recent hypercalcemia secondary to Juliaetta, per endocrine (Dr. Roberts) Blood Disorders: NONE Cancer(s): NONE OPHTHALMIC PATHOLOGIST/Reproductive: NONE History of MRSA: No History of VRE: No History of CDIFF: No Isolation History: Standard Influenza Vaccine: 11/30/16 Surgical History Surgical History: non-contributory Past Family/Social History Family History Relations & Conditions if any grandfather Myocardial infarction Psychosocial History Where do you live? Home Who Do You Live With? Brother Services at Home: None Primary Language: Icelandic Living Will? no Name of POA/HCP: Brother Functional Ability ADLs Independent: dressing, eating, toileting, bathing. Ambulation: independent IADLs Independent: shopping. 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 Exam & Diagnostic Data Last 24 Hrs of Vital Signs/I&O Vital Signs Date Time Temp Pulse Resp B/P Pulse O2 O2 Flow FiO2 Ox Delivery Rate 11/30 1150 83 109/71 11/30 0807 96 128/78 11/30 0730 98.5 96 128/78 11/29 2255 98.0 78 18 128/80 11/29 1946 98.3 104 16 116/80 11/29 1635 116 142/98 Intake & Output 11/30 1600 11/30 0800 11/30 0000 Intake Total Output Total Balance Patient 70.42 kg Weight Physical Exam General Appearance Alert, Oriented X3, Cooperative, No Acute Distress Skin No Rashes HEENT Atraumatic, PERRLA, EOMI, Mucous Membr. moist/pink Neck Supple, No JVD Cardiovascular Regular Rate, Normal S1, Normal S2, No Murmurs Lungs Clear to Auscultation, Normal Air Movement Abdomen Normal Bowel Sounds, Soft, No Tenderness, No Hepatospenomegaly Neurological Exam Findings: Normal Gait, Normal Speech, Strength at 5/5 X4 Ext Cranial Nerves II through XII: Within normal limits. Extremities No Clubbing, No Edema, Normal Pulses, No Tenderness/Swelling Vascular Normal Pulses Assessment/Plan Assessment: Patient has no active medical days at this point. Psychiatric complains is currently being managed by the inpatient psychiatric service. I reviewed her laboratory panel. Please recall if she develops any medical complaints. Also recall if she develops any further complaints of vomiting. As Ranked By This Provider Problem List: 1. Hypothyroidism 2. Bipolar 1 disorder, depressed, severe 3. Hypertension Miscellaneous Miscellaneous Documentation Attending Case Discussed With: ALEX TEJADA,BHARGAVI Primary Care Physician: MALIKA JIANG M.D. Patient sees these Specialists None Level of Patient Care: JOAQUINA Schmidt
[2016-11-30 15:42] VITALS: BP 127/62
[2016-11-30 19:26] VITALS: BP 108/68
[2016-12-01 08:10] VITALS: BP 140/96
[2016-12-01 12:11] VITALS: BP 149/91
--- NOTE | 2016-12-01 13:01 | CP SOUTH PROGRESS NOTE PSYCH ---
Psych (Inpt) Progress Note Progress Note Include the following elements, when applicable: Involvement in the active treatment of the patient with behavioral observations of the patient and the patient's response to the treatment. Review of the ongoing treatment process in the context of the treatment plan. Indication of how multi-disciplinary staff members are carrying out the treatment plan. Plans for future interventions and recommendations for revision of the treatment plan. Liaison with other physicians/providers. Progress Note: Notes reviewed, d/w nursing staff. Interviewed patient this morning. SAys she remains somewhat nauseous but has not vomited today. Was later observed eating pizza for lunch. Says that she slept fairly well last evening, her mood remains depressed. She denies suicidal ideation currently. I asked her more about her mouth movements, which are noted by both the nursing staff and me today. She says that over the last few weeks she has noticed "tooth grinding ". She is not sure as to why this is happening. Vitals reviewed and notable for mild tachycardia. Her urine cultures completed, demonstrating Klebsiella pneumoniae. MSE: mildly ill appearing thin WF resting on hospital bed. Unusual small amplitude mouth/jaw movements were noted. Cooperative with interview with good eye contact, speech wnl. Mood "a bit depressed", affect slightly constricted, congruent. TP log/sasha, TC wnl. Denies SI/HI. Denies perceptual disturbance. Cognition intact as above. I/J limited. A/P: It remains unclear to me as to the etiology of her persistent nausea, though this appears to be improving and she was noted taking in a bit of lunch today. Her mild tachycardia likely reflects mild volume depletion from nausea and vomiting. We'll continue to encourage by mouth intake. Her mouth movements remain unclear to me. They do not have the classic semiology of tardive dyskinesia, though she is at risk for development of TD given her chronic treatment with Seroquel. Will continue Seroquel 4 today and defer to primary team with regard to medication management.
[2016-12-01 15:58] VITALS: BP 129/77
[2016-12-01 19:34] VITALS: BP 126/81
[2016-12-02 07:54] VITALS: BP 129/80
[2016-12-02 12:26] VITALS: BP 107/76
--- NOTE | 2016-12-02 13:26 | PN- Att Addend ---
Attending Addendum Attending Brief Note Called with positive urine culture: >100,000 Klebs pneumonia. The patient has not fever, WBC or urinary symptoms. U/A on admit was not clear catch. Will not treat asymptomatic bacteruria at present, however will observe if any symptoms develop.
[2016-12-02 15:54] VITALS: BP 128/84
--- NOTE | 2016-12-02 16:57 | CP SOUTH PROGRESS NOTE PSYCH ---
Psych (Inpt) Progress Note Progress Note Progress Note: I discussed this patient's progress to date, current mental status, treatment process in the context of the treatment plan, and discharge planning with staff/ team in the daily morning inpatient team meeting. I also met with the patient myself in individual session. A total of 25 minutes was spent with the patient with more than 50% spent in counseling and/or coordination of care. SUBJECTIVE: "There's nothing you need to do for me. I just need to take it one day at a time." OBJECTIVE: Current Medications Sig/Yolanda Start time Last Medication Dose Route Stop Time Status Admin Acetaminophen 650 MG Q4P PRN 12/02 1230 AC 12/02 PO 1205 Atorvastatin Calcium 80 MG 1700 11/29 1700 AC 12/01 PO 1712 Cholecalciferol 2,000 IU DAILY 11/30 1000 AC 12/02 PO 0933 Desvenlafaxine 100 MG DAILY 11/30 1000 AC 12/02 Succinate PO 0933 Glycerin 2 SPRAY Q2P PRN 12/02 1645 AC PO Levothyroxine Sodium 0.075 MG DAILY AC 11/30 0700 AC 12/02 PO 0656 Lisinopril 10 MG DAILY 11/30 1000 AC 12/02 PO 0933 Mirtazapine 22.5 MG AT BEDTIME 11/29 2200 AC 12/01 PO 2151 Ondansetron HCl 4 MG Q8P PRN 12/01 1000 AC PO Oxybutynin Chloride 5 MG BID 11/29 2200 AC 12/02 PO 0933 Propranolol HCl 10 MG AT BEDTIME 11/29 2200 AC 12/01 PO 2151 Quetiapine Fumarate 250 MG AT BEDTIME 11/29 2200 AC 12/01 PO 2152 Trazodone HCl 50 MG AT BEDTIME 11/29 2200 AC 12/01 PO 2151 Trazodone HCl 50 MG AT BEDTIME NEED.. 11/29 1330 AC PO Vital Signs Date Time Temp Pulse Resp B/P Pulse O2 O2 Flow FiO2 Ox Delivery Rate 12/02 1554 96 128/84 12/02 1226 92 107/76 12/02 0933 96 129/80 12/02 0754 98.1 96 129/80 12/01 2151 126/81 12/01 1934 99.1 98 126/81 ASSESSMENT: Patient reports continuing depression and anxiety, states that her mood lability is "getting better." Reports tolerating her medications well, to good effect. She seems to exhibit symptoms of lip smacking. She states however that she has been experiencing dry mouth for the past 2 months. Although this may be tardive dyskinesia, for tonight she has agreed to try [place] dry mouth moisturizing spray. She presents as calm and cooperative, and her descriptions of depression and anxiety are not necessarily congruent with her presentation. Depression:10/10; Anxiety:5/10 (with 10 the worst.) Denies suicidal ideation, homicidal ideation, auditory hallucinations, visual hallucinations, paranoid ideation. Speech is well articulated, goal-directed, average in rate, volume and tone. The patient understands the risks/benefits/side effects of the medication and is agreeable to continue taking them. PLAN: Dry mouth moisturizing spray. Continue to provide wait for tardive dyskinesia. Her mood stabilizer, although she has history of lithium toxicity. Continue with other current management as patient is improving. Continue to provide support and encouragement.
[2016-12-02 19:48] VITALS: BP 128/79
[2016-12-03 07:57] VITALS: BP 141/94
--- NOTE | 2016-12-03 12:11 | SOCIAL WORKER PROG NOTE PSYCH ---
Social Work Progress Note Progress Note Met individually with patient to discuss progress, and patient exhibited good affect, despite brother stating that some family have indicated that she had not made much progress. Patient states that she cant really explain why she stayed in her car that day, but she "just felt immobilized". I have known Rita for some time and feel that this is currently as good as I have seen her, and I actually have sensed a bit of positivity, although, in general, she deels that her life has not gone well. Patient is very much in favor of going to [facility] where she said that she had beneditted, and, Beatriz, the director stated that she did do better than she had done in the past. I planned a family meeting tomorrow with the patients brother to discuss her status and needs. Meeting is scheduled for 1:00 p. m. with patient and her brother and possibly her sister. Patient appears to be doing well and close to discharge.
[2016-12-03 12:15] VITALS: BP 125/77
--- NOTE | 2016-12-03 13:12 | CP SOUTH PROGRESS NOTE PSYCH ---
Psych (Inpt) Progress Note Progress Note Progress Note: I discussed this patient's progress to date, current mental status, treatment process in the context of the treatment plan, and discharge planning with staff/ team in the daily morning inpatient team meeting. I also met with the patient myself in individual session. A total of 15 minutes was spent with the patient with more than 50% spent in counseling and/or coordination of care. SUBJECTIVE: "I'm doing great. I slept well." OBJECTIVE: Current Medications Sig/Yolanda Start time Last Medication Dose Route Stop Time Status Admin Acetaminophen 650 MG Q4P PRN 12/02 1230 AC 12/02 PO 2157 Atorvastatin Calcium 80 MG 1700 11/29 1700 AC 12/02 PO 1657 Cholecalciferol 2,000 IU DAILY 11/30 1000 AC 12/03 PO 0814 Desvenlafaxine 100 MG DAILY 11/30 1000 AC 12/03 Succinate PO 0814 Glycerin 2 SPRAY Q2P PRN 12/02 1645 AC 12/02 PO 2158 Levothyroxine Sodium 0.075 MG DAILY AC 11/30 0700 AC 12/03 PO 0814 Lisinopril 10 MG DAILY 11/30 1000 AC 12/03 PO 0814 Mirtazapine 22.5 MG AT BEDTIME 11/29 2200 AC 12/02 PO 2155 Ondansetron HCl 4 MG Q8P PRN 12/01 1000 AC PO Oxybutynin Chloride 5 MG BID 11/29 2200 AC 12/03 PO 0814 Propranolol HCl 10 MG AT BEDTIME 11/29 2200 AC 12/02 PO 2155 Quetiapine Fumarate 200 MG AT BEDTIME 12/03 2200 AC PO Quetiapine Fumarate 250 MG AT BEDTIME 11/29 2200 DC 12/02 PO 2156 Trazodone HCl 50 MG AT BEDTIME 11/29 2200 AC 12/02 PO 2156 Trazodone HCl 50 MG AT BEDTIME NEED.. 11/29 1330 AC PO Vital Signs Date Time Temp Pulse Resp B/P Pulse O2 O2 Flow FiO2 Ox Delivery Rate 12/03 1539 82 126/85 12/03 1215 76 125/77 12/03 0814 96.9 88 18 141/94 12/03 0757 96.9 88 141/94 12/02 2155 95 128/79 12/02 1948 98.5 95 128/79 ASSESSMENT: Patient states she is feeling well, offers no complaints today. Her appearance is somewhat disheveled. She would like to go home. Last night the moisturizing spray did not help for her dry mouth, and frequent lip smacking is noted. Patient states that she finds the lip smacking very uncomfortable. It appears that this is a symptom of tardive dyskinesia, after many years of taking various antipsychotic medications. Plan will be to taper down the Seroquel, and start Depakote for bipolar disorder. As per nursing report, patient exhibited a confused episode this afternoon. She was found sleeping in a bed not her own, and then required step by step instructions from nursing staff on how to shower (including reminding her to take off her clothes before going into the water.) She then returned to her room and fell asleep. Depression:0/10; Anxiety:0/10 (with 10 the worst.) Denies suicidal ideation, homicidal ideation, auditory hallucinations, visual hallucinations, paranoid ideation. She slept well last night, her appetite is good. Speech is well articulated, goal-directed, average in rate, volume and tone. The patient understands the risks/benefits/side effects of the medication and is agreeable to continue taking them. PLAN: Decrease Seroquel. I will discuss starting Depakote with the patient after she wakes up. Continue with other current management. Continue to provide support and encouragement.
[2016-12-03 15:39] VITALS: BP 126/85
[2016-12-03 19:55] VITALS: BP 143/93
[2016-12-04 08:05] VITALS: BP 137/86
[2016-12-04 12:14] VITALS: BP 137/94
--- NOTE | 2016-12-04 13:38 | SOCIAL WORKER PROG NOTE PSYCH ---
Social Work Progress Note Progress Note Had family meeting with patient's brother, Simone, withwhom she has lived throughout her life. Patient was far too confused and impaired to be able to attend meeting and comprehend. Patient extremely confused. She has been going to sleep in wrong rooms, and has exhibited considerable confusion. She shows evidence of a UTI, and has CATSCAN in E.D. but nothing was found from that Scan. Patient also did fairly poorly on mini mental status, scoring lower than might be expected optimally; although not in the seriously impaired range. Call made to [facility] at [facility] [phone], extension [phone]., All clinical left, including med list. Patient struggling at present and appears depressed and very confused
--- NOTE | 2016-12-04 13:46 | CP SOUTH PROGRESS NOTE PSYCH ---
Psych (Inpt) Progress Note Progress Note Progress Note: I discussed this patient's progress to date, current mental status, treatment process in the context of the treatment plan, and discharge planning with staff/ team in the daily morning inpatient team meeting. I also met with the patient myself in individual session. A total of 25 minutes was spent with the patient with more than 50% spent in counseling and/or coordination of care. SUBJECTIVE: "I need to have a more even keel mood. I go from high to low." OBJECTIVE: Current Medications Sig/Yolanda Start time Last Medication Dose Route Stop Time Status Admin Acetaminophen 650 MG Q4P PRN 12/02 1230 AC 12/02 PO 2157 Atorvastatin Calcium 80 MG 1700 11/29 1700 AC 12/03 PO 1701 Cholecalciferol 2,000 IU DAILY 11/30 1000 AC 12/04 PO 0824 Desvenlafaxine 100 MG DAILY 11/30 1000 AC 12/04 Succinate PO 0824 Divalproex Sodium 250 MG 0800,12/04 1230 AC 12/04 PO 1314 Glycerin 2 SPRAY Q2P PRN 12/02 1645 AC 12/02 PO 2158 Levothyroxine Sodium 0.075 MG DAILY AC 11/30 0700 AC 12/04 PO 0823 Lisinopril 10 MG DAILY 11/30 1000 AC 12/04 PO 0824 Mirtazapine 22.5 MG AT BEDTIME 11/29 2200 AC 12/03 PO 2135 Ondansetron HCl 4 MG Q8P PRN 12/01 1000 AC PO Oxybutynin Chloride 5 MG BID 11/29 2200 AC 12/04 PO 0823 Propranolol HCl 10 MG AT BEDTIME 11/29 2200 AC 12/03 PO 2134 Quetiapine Fumarate 200 MG AT BEDTIME 12/03 2200 AC 12/03 PO 2134 Quetiapine Fumarate 250 MG AT BEDTIME 11/29 2200 DC 12/02 PO 2156 Trazodone HCl 50 MG AT BEDTIME 11/29 220 AC 12/03 PO 2133 Trazodone HCl 50 MG AT BEDTIME NEED.. 11/29 1330 AC PO Vital Signs Date Time Temp Pulse Resp B/P Pulse O2 O2 Flow FiO2 Ox Delivery Rate 12/04 1214 100 137/94 12/04 0824 104 137/86 12/04 0805 104 137/86 022133 99.6 80 18 143/93 12/03 1954 99.6 80 143/93 12/03 1539 82 126/85 ASSESSMENT: Patient reports that her lip smacking and "teeth clicking" are better today than yesterday, after decreasing Seroquel from 250 mg to 200 mg. Patient agrees that we will taper down Seroquel to discontinuation, for concern of tardive dyskinesia. We discussed the risks, benefits and side effects of Depakote for mood stabilization, and the patient states that she agrees to take this medication, and believes that she needs a mood stabilizer. Yesterday afternoon, nursing reports the patient had a precipitous decline in cognitive function, which may be related to a urinary tract infection. Folstein Mini-Mental state exam was conducted today, patient scored 24. In addition to meeting individually with the patient this morning, I also met separately with the patient's brother (with whom she lives) and licensed clinical social worker Cole. We discussed the patient's treatment, medication changes, and discharge planning. Patient's brother is agreeable. She reports continuing depression, stating that she misses her family. Denies suicidal ideation, homicidal ideation, auditory hallucinations, visual hallucinations, paranoid ideation. She reports sleeping well at night, states her appetite is getting better. Speech is well articulated, goal-directed, average in rate, volume and tone. Calm and cooperative. Alert and oriented 3. The patient understands the risks/benefits/side effects of the medication and is agreeable to continue taking them. PLAN: At this time we're evaluating patient for yesterday's acute decline in cognitive function. Patient is being evaluated by Dr. Reyez for treatment of urinary tract infection. Seroquel is being tapered down to discontinuation for what may be tardive dyskinesia. Depakote initiated for mood stability. She continues to be in need of inpatient care. Continue with other current management as patient is improving. Continue to provide support and encouragement.
--- NOTE | 2016-12-04 14:56 | PN- Att Addend ---
Attending Addendum Attending Brief Note Spoke with SENIOR RESERVATIONS AGENT on case and concern that UTI may be possibly contributing to delirium. Will empirically treat with Macrodantin and observe if any change in mental status.
[2016-12-04 16:14] VITALS: BP 135/88
[2016-12-04 19:33] VITALS: BP 133/84
[2016-12-05 07:57] VITALS: BP 133/69
--- NOTE | 2016-12-05 10:17 | SOCIAL WORKER PROG NOTE PSYCH ---
Social Work Progress Note Progress Note Pt has an intake appointment with [facility] on Friday12/10/16 at 9:30am.
[2016-12-05 12:14] VITALS: BP 130/91
--- NOTE | 2016-12-05 13:12 | CP SOUTH PROGRESS NOTE PSYCH ---
Psych (Inpt) Progress Note Progress Note Progress Note: I discussed this patient's progress to date, current mental status, treatment process in the context of the treatment plan, and discharge planning with staff/ team in the daily morning inpatient team meeting. I also met with the patient myself in individual session. A total of 15 minutes was spent with the patient with more than 50% spent in counseling and/or coordination of care. OBJECTIVE: Current Medications Sig/Yolanda Start time Last Medication Dose Route Stop Time Status Admin Acetaminophen 650 MG Q4P PRN 12/02 1230 AC 12/02 PO 2157 Atorvastatin Calcium 80 MG 1700 11/29 1700 AC 12/04 PO 1644 Cholecalciferol 2,000 IU DAILY 11/30 1000 AC 12/05 PO 0808 Desvenlafaxine 100 MG DAILY 11/30 1000 AC 12/05 Succinate PO 0809 Divalproex Sodium 250 MG 0800,12/04 1230 AC 12/05 PO 0808 Glycerin 2 SPRAY Q2P PRN 12/02 1645 AC 12/05 PO 0809 Levothyroxine Sodium 0.075 MG DAILY AC 11/30 0700 AC 12/05 PO 0541 Lisinopril 10 MG DAILY 11/30 1000 AC 12/05 PO 0808 Mirtazapine 22.5 MG AT BEDTIME 11/29 2200 AC 12/04 PO 2139 Nitrofurantoin 50 MG Q6 12/04 1458 AC 12/05 PO 12/09 1300 1224 Ondansetron HCl 4 MG Q8P PRN 12/01 1000 AC PO Oxybutynin Chloride 5 MG BID 11/29 2200 AC 12/05 PO 0808 Propranolol HCl 10 MG AT BEDTIME 11/29 2200 AC 12/04 PO 2139 Quetiapine Fumarate 200 MG AT BEDTIME 12/03 2200 AC 12/04 PO 2140 Trazodone HCl 50 MG AT BEDTIME 11/29 2200 AC 12/04 PO 2139 Trazodone HCl 50 MG AT BEDTIME NEED.. 11/29 1330 AC PO Vital Signs Date Time Temp Pulse Resp B/P Pulse O2 O2 Flow FiO2 Ox Delivery Rate 12/05 1214 80 130/91 12/05 0808 93 133/69 12/05 0757 98.5 93 133/69 12/04 2139 91 133/84 12/04 1933 99.3 91 133/84 12/04 1614 94 135/88 ASSESSMENT: Patient presents in a calm and cooperative manner, flat affect. Reports tolerating Depakote well, without complaint. Reports that she feels that the lip smacking has improved a little bit, however complains of dry mouth. She has been using the [place] moisturizing spray, which she says is helpful. States that she feels her moods are a little bit better, states that usually at home her moods are either very up or very down. Depression:0/10; Anxiety:0/10 (with 10 the worst.) Denies suicidal ideation, homicidal ideation, auditory hallucinations, visual hallucinations, paranoid ideation. Patient states and also believes that she will not kill herself. Reports sleeping very well last night, "my best sleep so far." Appetite is adequate. Speech is well articulated, goal-directed, average in rate, quiet in volume and tone. Flat affect. The patient understands the risks/benefits/side effects of the medication and is agreeable to continue taking them. PLAN: Depakote level on Friday. Seroquel taper to discontinuation. Continue with current management as patient is improving. Continue to provide support and encouragement.
--- NOTE | 2016-12-05 13:41 | SOCIAL WORKER PROG NOTE PSYCH ---
Social Work Progress Note Progress Note Met with pt, she reports feeling ok, denies feeling suicidal, and understand the med changes, she reports having a UTI and how this impacted her confusion. Pt reports she would be interested in returning to to [facility] "[facility] in the morning was helpful and I like getting my day started with something to do". Her intake is Friday the at 9:30am. Pt agrees with this level of care, and was presented that her discharge would be Friday.
[2016-12-05 16:00] VITALS: BP 118/79
[2016-12-05 20:05] VITALS: BP 129/77
[2016-12-06 07:19] VITALS: BP 130/84
--- NOTE | 2016-12-06 11:21 | SOCIAL WORKER PROG NOTE PSYCH ---
Social Work Progress Note Progress Note Left clinical for [facility] at [phone] ext [phone] requesting additional days to cover her thru Friday. Awaiting a call back. Met with pt, and she reports she would feel prepared for a discharge after the weekend, as she is still having trouble with ADLS, and has experienced a med change.
[2016-12-06 12:31] VITALS: BP 135/89
[2016-12-06 15:41] VITALS: BP 114/71
--- NOTE | 2016-12-06 16:20 | CP SOUTH PROGRESS NOTE PSYCH ---
Psych (Inpt) Progress Note Progress Note Progress Note: I discussed this patient's progress to date, current mental status, treatment process in the context of the treatment plan, and discharge planning with staff/ team in the daily morning inpatient team meeting. I also met with the patient myself in individual session. A total of 15 minutes was spent with the patient with more than 50% spent in counseling and/or coordination of care. OBJECTIVE: Current Medications Sig/Yolanda Start time Last Medication Dose Route Stop Time Status Admin Acetaminophen 650 MG Q4P PRN 12/02 1230 AC 12/02 PO 2157 Atorvastatin Calcium 80 MG 1700 11/29 1700 AC 12/05 PO 1650 Cholecalciferol 2,000 IU DAILY 11/30 1000 AC 12/06 PO 0815 Desvenlafaxine 100 MG DAILY 11/30 1000 AC 12/06 Succinate PO 0816 Divalproex Sodium 250 MG 0800,12/04 1230 AC 12/06 PO 0715 Glycerin 2 SPRAY Q2P PRN 12/02 1645 AC 12/05 PO 1649 Levothyroxine Sodium 0.075 MG DAILY AC 11/30 0700 AC 12/06 PO 0714 Lisinopril 10 MG DAILY 11/30 1000 AC 12/06 PO 0815 Mirtazapine 22.5 MG AT BEDTIME 11/29 2200 AC 12/05 PO 2318 Nitrofurantoin 50 MG Q6 12/04 1458 AC 12/06 PO 12/09 1300 1238 Ondansetron HCl 4 MG Q8P PRN 12/01 1000 AC PO Oxybutynin Chloride 5 MG BID 11/29 2200 AC 12/06 PO 0816 Propranolol HCl 10 MG AT BEDTIME 11/29 2200 AC 12/05 PO 2318 Quetiapine Fumarate 150 MG AT BEDTIME 12/06 2200 UNVr PO Quetiapine Fumarate 200 MG AT BEDTIME 12/03 2200 DC 12/05 PO 2319 Trazodone HCl 50 MG AT BEDTIME 11/29 2199 AC 12/05 PO 2319 Trazodone HCl 50 MG AT BEDTIME NEED.. 11/29 1330 AC PO Vital Signs Date Time Temp Pulse Resp B/P Pulse O2 O2 Flow FiO2 Ox Delivery Rate 12/06 1541 92 114/71 12/06 1231 86 135/89 12/06 0815 98.2 98 18 130/84 12/06 0719 98.2 98 130/84 12/05 2318 91 129/77 12/05 2004 98.7 91 129/77 ASSESSMENT: Patient appears more awake this afternoon than she has on our previous visits. Patient states she also feels more awake. Denies difficulty sleeping. Patient continues to complain of "teeth clicking and grinding." Patient's lipsmacking behavior has the appearance of tardive dyskinesia. We are tapering Seroquel down to discontinuation. Continues to complain of severe depression and anxiety. Denies suicidal ideation, homicidal ideation, auditory hallucinations, visual hallucinations, paranoid ideation. She reports that her appetite is very good. We discussed the risk that Depakote may lead to weight gain associated metabolic problems. Patient verbalizes understanding, and agrees to continue this medication. Speech is well articulated, goal-directed, average in rate, volume and tone. The patient understands the risks/benefits/side effects of the medication and is agreeable to continue taking them. PLAN: Depakote level Friday. Please titrate Depakote dosage to a therapeutic Depakote level. Seroquel 150 mg for at least 2 days, and then continued to titrate downward to discontinuation. Continue with current management as patient is improving. Anticipate discharge on Friday. Continue to provide support and encouragement.
[2016-12-06 19:39] VITALS: BP 152/74
[2016-12-07 07:46] VITALS: BP 121/95
--- NOTE | 2016-12-07 12:09 | CP SOUTH PROGRESS NOTE PSYCH ---
Psych (Inpt) Progress Note Progress Note Include the following elements, when applicable: Involvement in the active treatment of the patient with behavioral observations of the patient and the patient's response to the treatment. Review of the ongoing treatment process in the context of the treatment plan. Indication of how multi-disciplinary staff members are carrying out the treatment plan. Plans for future interventions and recommendations for revision of the treatment plan. Liaison with other physicians/providers.' Progress Note: Pt notes that she is feeling better overall. UTI sx are abating. She notes that less depressed. Noted visit from brother, Simone, a few days ago which went well. Denies SI or HI. Denies psychotic or manic sx. Current Medications Sig/Yolanda Start time Last Medication Dose Route Stop Time Status Admin Acetaminophen 650 MG Q4P PRN 12/02 1230 AC 12/07 PO 1202 Atorvastatin Calcium 80 MG 1700 11/29 1700 AC 12/06 PO 1618 Cholecalciferol 2,000 IU DAILY 11/30 1000 AC 12/07 PO 0856 Desvenlafaxine 100 MG DAILY 11/30 1000 AC 12/07 Succinate PO 0856 Divalproex Sodium 500 MG 08,12/07 2000 UNVr PO Divalproex Sodium 250 MG 08,12/04 1230 DC 12/07 PO 0856 Glycerin 2 SPRAY Q2P PRN 12/06 1615 AC 12/06 PO 2141 Glycerin 2 SPRAY Q2P PRN 12/02 1645 DC 12/05 PO 1649 Levothyroxine Sodium 0.075 MG DAILY AC 11/30 0700 AC 12/07 PO 0609 Lisinopril 10 MG DAILY 11/30 1000 AC 12/07 PO 0856 Mirtazapine 22.5 MG AT BEDTIME 11/29 2200 AC 12/06 PO 2142 Nitrofurantoin 50 MG Q6 12/04 1458 AC 12/07 PO 12/09 1300 1202 Ondansetron HCl 4 MG Q8P PRN 12/01 1000 AC PO Oxybutynin Chloride 5 MG BID 11/29 220 AC 12/07 PO 0856 Propranolol HCl 10 MG AT BEDTIME 11/29 2200 AC 12/06 PO 2142 Quetiapine Fumarate 150 MG AT BEDTIME 12/06 2200 AC 12/06 PO 2141 Quetiapine Fumarate 200 MG AT BEDTIME 12/03 2200 DC 12/05 PO 2319 Trazodone HCl 50 MG AT BEDTIME 11/29 2200 AC 12/06 PO 214 Trazodone HCl 50 MG AT BEDTIME NEED.. 11/29 1330 AC PO Laboratory Tests 12/07 0600 Toxicology Valproic Acid (50 - 120 ug/mL) 41.0 L Vital Signs Date Time Temp Pulse Resp B/P Pulse O2 O2 Flow FiO2 Ox Delivery Rate 12/07 0856 98.1 94 18 121/95 12/07 0746 98.1 94 121/95 12/06 2142 99.0 98 18 152/74 12/06 1939 99.0 98 152/74 12/06 1541 92 114/71 12/06 1231 86 135/89 MSE Appears older than stated age. Cooperative behavior, good, appropriate eye contact. Nl speech rate and prosody. No psychomotor retardation or agitation. Mood fine Affect slightly depressed, constricted, appropriate, non-liable. Linear and goal directed thought process. Denies SI or HI. Does not appear to be responding to internal stimuli. Denies AVHs, paranoia, or delusions. I/J: limited A/P: Pt with Bipolar disorder, most recent episdoe depressed with decreased depression and increased mood stability. - VPA level of 41, increase from 250mg BID to 500mg BID depakote - Continue current medication regimen
[2016-12-07 12:20] VITALS: BP 128/86
[2016-12-07 16:18] VITALS: BP 132/88
[2016-12-07 19:44] VITALS: BP 145/95
[2016-12-08 08:08] VITALS: BP 141/94
--- NOTE | 2016-12-08 11:54 | CP SOUTH PROGRESS NOTE PSYCH ---
Psych (Inpt) Progress Note Progress Note Include the following elements, when applicable: Involvement in the active treatment of the patient with behavioral observations of the patient and the patient's response to the treatment. Review of the ongoing treatment process in the context of the treatment plan. Indication of how multi-disciplinary staff members are carrying out the treatment plan. Plans for future interventions and recommendations for revision of the treatment plan. Liaison with other physicians/providers. Progress Note: Pt in "pretty good" mood today. Plans to spend the day reading for Ambrosio in the bible. She was raised Sikh and her methodist is very important her. She recounted a bible bedtime song for this conventional underwriter. Denies SI or HI. Current Medications Sig/Yolanda Start time Last Medication Dose Route Stop Time Status Admin Acetaminophen 650 MG .STK-MED ONE 12/07 1156 DC PO 12/07 1157 Acetaminophen 650 MG Q4P PRN 12/02 1230 AC 12/07 PO 1202 Atorvastatin Calcium 80 MG 1700 11/29 1700 AC 12/07 PO 1738 Cholecalciferol 2,000 IU DAILY 11/30 1000 AC 12/08 PO 0828 Desvenlafaxine 100 MG DAILY 11/30 1000 AC 12/08 Succinate PO 0828 Divalproex Sodium 500 MG 799,12/07 2000 AC 12/08 PO 0827 Divalproex Sodium 250 MG 799,12/04 1230 DC 12/07 PO 0856 Glycerin 2 SPRAY Q2P PRN 12/06 1615 AC 12/06 PO 2141 Levothyroxine Sodium 0.075 MG DAILY AC 11/30 0700 AC 12/08 PO 0713 Lisinopril 10 MG DAILY 11/30 1000 AC 12/08 PO 0828 Mirtazapine 22.5 MG AT BEDTIME 11/29 2200 AC 12/07 PO 2139 Nitrofurantoin 50 MG Q6 12/04 1458 AC 12/08 PO 12/09 1300 0713 Ondansetron HCl 4 MG Q8P PRN 12/01 1000 AC PO Oxybutynin Chloride 5 MG BID 11/29 2200 AC 12/08 PO 0827 Propranolol HCl 10 MG AT BEDTIME 11/29 2200 AC 12/07 PO 2138 Quetiapine Fumarate 150 MG AT BEDTIME 12/06 2200 AC 12/07 PO 2138 Trazodone HCl 50 MG AT BEDTIME 11/29 2200 AC 12/07 PO 2138 Trazodone HCl 50 MG AT BEDTIME NEED.. 11/29 1330 AC PO Laboratory Tests 12/07 0600 Toxicology Valproic Acid (50 - 120 ug/mL) 41.0 L Vital Signs Date Time Temp Pulse Resp B/P Pulse O2 O2 Flow FiO2 Ox Delivery Rate 12/08 0728 98.0 94 18 141/94 12/08 0808 98.0 94 141/94 12/07 2138 95 145/95 12/07 1944 98.4 95 145/95 12/07 1618 96 132/88 12/07 1220 88 128/86 MSE Appears as stated age. Cooperative behavior, good, appropriate eye contact. Nl speech rate and prosody. No psychomotor retardation or agitation. Mood fine Affect euthymic, full range, appropriate, non-liable. Linear and goal directed thought process though odd. Denies SI or HI. Does not appear to be responding to internal stimuli. Denies AVHs, paranoia, or delusions. I/J: limited A/P: Pt with hx of Bipolar disorder with improved mood though slightly elevated at this time. Will closely monitor for hypomania and functional impairment. VPA recently increased which may help stablize mood. - Continue current medication regimen - Encourage intergration into [facility]
[2016-12-08 12:21] VITALS: BP 127/65
[2016-12-08 16:25] VITALS: BP 148/98
[2016-12-08 19:33] VITALS: BP 126/73
[2016-12-09 07:53] VITALS: BP 132/92
--- NOTE | 2016-12-09 10:04 | SOCIAL WORKER TX PLAN PSYCH ---
Treatment Plan - Please Document: - Evidence that there is ongoing collaboration between - the patient and the interdisciplinary team, - including the patient's active participation and - responsibility for engaging in the treatment regimen, - and that the treatment plan is individualized and - relevant to the patient's conditions. - Treatment plan should reflect documentation indicating - that all active therapeutic efforts are included. Strengths/Capabilities: has stable housing and support from family Physical Limitations (Interventions): none Patient Identified Trmt Goals: " I want to feel normal again." Discharge Plan: [facility] Problem/Goals #1 Problem #1: Confusion Goal (Short Term): Attend 3 groups today Identify 3 feelings today Communicate effectively with staff and peers Goal (Prison): Arrange for aftercare Family meeting Attend groups daily Interventions: Learn ways to manage symptoms appropriately and vocalize feelings to family. Modalities: Encourage med management, attending IOP DSM5/PS Stressors/Medical Prob Diagnosis' (DSM 5, Stressors, Medical): Bipolar disorder, severe, depressed F31.4 Current GAF: 23 Treatment Team - Responsibilities of members of the treatment team include: - Medication Management- MD or FORK TRUCK DRIVER - Medication Administration and Monitoring- Nurse - Group Therapy- Occupational Therapist - 1:1 Therapy,Disch Planning,family involvement-Reinforcing Iron Worker Helper
--- NOTE | 2016-12-09 10:48 | SOCIAL WORKER PROG NOTE PSYCH ---
Social Work Progress Note Progress Note Patient to discharge the hospital today. Patient denies SI/HI/AH/VH at present and presents with bright mood and affect today. Patient reports looking forward to returning home today and sleeping in her own bed. Patient has agreed to follow up with [facility] and has intake scheduled tomorrow at 12/10/16 @ 9:30am. Patient will return to living with her brother in a safe environment. Patient is able to contract for safety today and will discharge the hospital with family this afternoon.
--- NOTE | 2016-12-09 11:13 | DISCHARGE SUMMARY REPORT-PSYCH ---
Visit Information Visit Dates/Diagnosis' Admission Date: 11/29/16 Discharge Date: 12/09/16 Reason for Admission: Patient is a 61 year old, never woman who was brought to the [facility] by her brother and sister after she had been seen sitting in her parked car for 3+ hours, and seemed confused. She stated to Crisis, " I'm ready to give up. I cant cope anymore." This is the patient's ninth [facility] inpatient psychiatric admission since 2008. Psy Discharge Primary Diag: Bipolar d/o, depressed. Psy Discharge Secondary Diag: HTN; Hypercholesterolemia; Hypothyroidism; NATALYA; possible hx of seizure; past hypercalcemia, past acute renal failure; recent hypokalemia. Hospital Course Significant Lab Findings: Lab TSH &T3 &Free T4 Intrp 0.897 uIU/mL 11/28/162003 Valproic Acid 41.0 ug/mL L 12/07/16 0600 Urine culture on 11/29/2016 positive for greater than 100,000 colonies per milliliter of Klebsiella Pneumoniae. Course Complications: Patient was treated for urinary tract infection. Please refer to Dr. Veloz's notes for additional information. Consultations: Patient was seen for admission history and physical by Dr. Escoto. Please refer to his note for additional information. Allergies: Coded Allergies: Penicillins (Mild, "CHILDHOOD RASH" 11/18/16) carbamazepine (From TEGRETOL) (RASH 11/29/16) lithium (toxicity 11/29/16) Hospital Course/TX Response: Patient was monitored on the unit for safety, depression, suicidal ideation, and mood stability. She was medicated with Depakote for mood stability. Pristiq was continued for depression, mirtazapine and trazodone for depression and sleep at bedtime. Patient exhibited dry mouth and some lip smacking behaviors, which we suspect may be the beginnings of tardive dyskinesia as a result of neuroleptics which the patient had been taking prior to arrival as a mood stabilizer. We began titrating the Seroquel dose downwards, with the intention that it be discontinued on an outpatient basis. Patient's urine culture was positive for klebsiella pneumoniae. She was medicated with Macrodantin for urinary tract infection. Patient's symptoms of confusion, disorganization, depression and intermittent suicidal ideation appeared to resolve after antibiotic treatment was initiated. Today, the day of discharge, she reports that she is feeling well, safe and ready for discharge today. Offers no complaints. She states, "I'm feeling marvelous, terrific." Tolerating medications well. States she is looking forward to following up at [facility]. Has completed a course of Nitrofurantoin for UTI as per Dr. Reyez. Lab slip will be given to the patient to have her valproic acid level, urinalysis, and urine cultures taken on an outpatient basis. Depression:0/10; Anxiety:0/10 (with 10 the worst.) Denies suicidal ideation, homicidal ideation, auditory hallucinations, visual hallucinations, paranoid ideation. Patient states and also believes that she will not kill herself. Speech is well articulated, goal-directed, average in rate, volume and tone. The patient understands the risks/benefits/side effects of the medication and is agreeable to continue taking them. Patient reports tolerating her medications well, without complaint. States she feels safe and ready for discharge. Discharge HBIPS - Tobacco Use Treatment Offered Post DC Medications Offered: NA-No Tob Use >30 days Post DC Tobacco Treatment Plan: NA-No Tobacco use >30days - EtOH/Drug Use D/O Treatment Offered Post DC Medications Offered: NA-No EtOH/Drug Use D/O Post DC EtOH/SubAbuse TX Plan: NA-No EtOH/Drug Use D/O Metabolic Screening - Screen if on a Neuroleptic Medication - Metabolic screening should include: - Blood Pressure, BMI, Glucose or Hgb A1c, & a - Lipid profile from within the past 365 days. Metabolic Screening () Not Applicable, patient not on a neuroleptic. OR (x) Patient on a neuroleptic(s) . Enter below results for Glucose or Hemoglobin A1C, and lipid panel if obtained during the last 365 days. BMI: 28.400 Blood Pressure: 110/79 Laboratory Results (If applicable): Lab Cholesterol 197 MG/DL 08/05/16 1150 Cholesterol/HDL Ratio 3 % 08/05/16 1150 HDL Cholesterol 75 mg/dL H 08/05/16 1150 Hemoglobin A1c 5.6 % 08/08/16 0605 LDL Cholesterol, Calc 94 mg/dL 08/05/16 1150 Triglycerides 141 mg/dL 08/05/16 1150 Discharge Instructions General Discharge Information Discharge Medications: Discharge Medications- (Dose, route, freq, indication): START taking these NEW Home Medications: Divalproex Sodium Dose: ORAL, 0800,1999 for MOOD Qty: 28 Called in to (Divalproex Sodium) 500 Milligram STABILITY Refills: 0 Pharm 1 500 MG TABLET.DR Last Taken:12/09/16 Time:8am [Remeron] 7.5 MG Dose: ORAL, AT BEDTIME for Qty: 14 Called in to TAB 7.5 Milligram DEPRESSION/SLEEP Refills: 0 Pharm 1 TAKE ALONG WITH 15MG TAB, FOR A TOTAL DOSE OF 22.5MG AT BEDTIME. Quetiapine Fumarate Dose: ORAL, AT BEDTIME for Qty: 42 Called in to (Seroquel) 50 MG 150 Milligram CLEAR THOUGHTS Refills: 0 Pharm 1 TABLET TAKE THREE TABLETS OF 50MG AT NIGHT. Last Taken:12/08/16 Time:10pm Saliva Substitute Dose: ORAL, EVERY 2 HOURS Qty: 1 Called in to Combo No.9 (Biotene) 2 [place] NEEDED as needed for dry Refills: 0 Pharm 1 473 ML MOUTHWASH mouth CONTINUE taking these Home Medications: Levothyroxine Sodium Dose: ORAL, Every Morning for (Levothyroxine Sodium) 1 Tablet HYPOTHYROID 75 MCG TABLET Last Taken:12/09/16 Time:7am Lisinopril (Lisinopril) Dose: ORAL, Every Morning for 10 MG TABLET 1 Tablet HEART HEALTH Last Taken:12/09/16 Time:8am Oxybutynin Chloride Dose: ORAL, Every Morning for (Oxybutynin Chloride ER) 1 Tablet BLADDER HEALTH 10 MG TAB.ER.24 Last Taken:12/09/16 Time:8am Cholecalciferol (Vitamin Dose: ORAL, DAILY for D3) (Vitamin D) 1,000 2 Tablet SUPPLEMENT UNIT TABLET Last Taken:12/09/16 Time:8am Simvastatin (Simvastatin Dose: ORAL, Every night for *) 80 MG TABLET 1 Tablet CHOLESTEROL HEALTH Last Taken:12/08/16 Time:6pm Propranolol HCl Dose: ORAL, Every night for (Propranolol HCl) 10 MG 1 Tablet TREMORS TABLET Last Taken:12/08/16 Time:10pm Mirtazapine Dose: ORAL, Every night for (Mirtazapine) 15 MG 1 Tablet MENTAL HEALTH TABLET Last Taken:12/08/16 (Take with 7.5mg tab.) Time:10pm Trazodone HCl (Trazodone Dose: ORAL, Every night for HCl) 50 MG TABLET 1 Tablet MENTAL HEALTH Last Taken:12/08/16 Time:10pm Desvenlafaxine Succinate Dose: ORAL, DAILY for MENTAL (Pristiq ER) 100 MG 1 Tablet HEALTH TAB.ER.24H Last Taken:12/09/16 Time:8am STOP taking these DISCONTINUED Home Medications: Zolpidem Tartrate (Zolpidem Dose: ORAL, TAKE AT BEDTIME for SLEEP Tartrate) 5 MG TABLET 1-2 Tablet Reason Stopped: Changed to different med Quetiapine Fumarate Dose: ORAL, Every night for MENTAL (Quetiapine Fumarate) 200 MG 1 Tablet HEALTH TABLET Reason Stopped: Changed Dose 1: [id number], [id number], [address], [place], [place] [phone] Your Preferred Pharmacy [id number], [address], [place] [phone] Multiple Neuroleptics: (x) Not Applicable OR Document below three failed attempts at monotherapy, or a plan to taper to monotherapy, or augmentation of Clozapine. () Patient's Diet: Regular Patient's Activity: No restrictions. DC Disposition: Patient is returning to her home, where she lives with her brother. Recommendations: Follow up at [facility]. Take medications as directed. Depakote level and urine sample at [facility] on Friday. A lab slip has been provided. Referred To: [facility] Service Date: 12/10/16 [address] [id number] Notes: [facility]: [address] 12/10/16 @ 9:30am Copies To: [facility]
[2016-12-09] MEDS ORDERED: BIOTENE473 ML PO (11:20)
[2016-12-09] MEDS ORDERED: Remeron PO (11:26)
[2016-12-09] MEDS ORDERED: DIVALPROEX SOD500 M2 PO (11:50)
[2016-12-09] MEDS ORDERED: SEROQUEL50 M1 PO (11:53)
[2016-12-09 12:14] VITALS: BP 115/75
--- NOTE | 2016-12-09 12:20 | [facility] PROGRESS NOTE PSYCH ---
Psych (Inpt) Progress Note Progress Note Progress Note: I discussed this patient's progress to date, current mental status, treatment process in the context of the treatment plan, and discharge planning with staff/ team in the daily morning inpatient team meeting. I also met with the patient myself in individual session. A total of 30 minutes was spent with the patient with more than 50% spent in counseling and/or coordination of care. SUBJECTIVE: "I'm feeling marvelous, terrific." OBJECTIVE: Current Medications Sig/Yolanda Start time Last Medication Dose Route Stop Time Status Admin Acetaminophen 650 MG Q4P PRN 12/02 1230 AC 12/09 PO 1111 Atorvastatin Calcium 80 MG 1700 11/29 1700 AC 12/08 PO 1808 Cholecalciferol 2,000 IU DAILY 11/30 1000 AC 12/09 PO 0754 Desvenlafaxine 100 MG DAILY 11/30 1000 AC 12/09 Succinate PO 0754 Divalproex Sodium 500 MG 0800,12/07 2000 AC 12/09 PO 0754 Glycerin 2 SPRAY Q2P PRN 12/06 1615 AC 12/06 PO 2141 Levothyroxine Sodium 0.075 MG DAILY AC 11/30 0700 AC 12/09 PO 0753 Lisinopril 10 MG DAILY 11/30 1000 AC 12/09 PO 0754 Mirtazapine 22.5 MG AT BEDTIME 11/29 2199 AC 12/08 PO 2218 Nitrofurantoin 50 MG Q6 12/04 1458 DC 12/08 PO 12/09 1300 1316 Ondansetron HCl 4 MG Q8P PRN 12/01 1000 AC PO Oxybutynin Chloride 5 MG BID 11/29 220 AC 12/09 PO 0754 Propranolol HCl 10 MG AT BEDTIME 11/29 220 AC 12/08 PO 2218 Quetiapine Fumarate 150 MG AT BEDTIME 12/06 220 AC 12/08 PO 2218 Trazodone HCl 50 MG AT BEDTIME 11/29 2199 AC 12/08 PO 2218 Trazodone HCl 50 MG AT BEDTIME NEED.. 11/29 1330 AC PO Vital Signs Date Time Temp Pulse Resp B/P Pulse O2 O2 Flow FiO2 Ox Delivery Rate 12/09 1214 91 115/75 12/09 0753 99.1 94 132/92 12/08 1933 99.7 94 126/73 12/08 1625 86 148/98 12/08 1221 99 127/65 ASSESSMENT: Patient reports that she is feeling well, safe and ready for discharge today. Offers no complaints. Tolerating medications well. States she is looking forward to following up at [facility]. Has completed course of Nitrofurantoin for UTI as per Dr. Reyez. Lab slip will be given to the patient to have her valproic acid level, urinalysis, and urine cultures taken on an outpatient basis. Depression:0/10; Anxiety:0/10 (with 10 the worst.) Denies suicidal ideation, homicidal ideation, auditory hallucinations, visual hallucinations, paranoid ideation. Speech is well articulated, goal-directed, average in rate, volume and tone. The patient understands the risks/benefits/side effects of the medication and is agreeable to continue taking them. PLAN: Discharge today, patient will follow up at [facility]. Continue with current management as patient is improving. Continue to provide support and encouragement. Continue to provide support and encouragement.
[2016-12-09 15:52] VITALS: BP 110/79
== END 2016-12-09 17:15 | DRG 885 ==
LOC: ENRESERVDT → ENRESERVTM → ERH 19:11 → ENPENDDIS 11-29 13:22 → CP SOUTH 11-29 13:22 → ERHI 11-29 13:22 → CP SOUTH 11-29 15:41
PROVIDERS: Emergency Medicine; ADMIT Psychiatry & Neurology Psychiatry
DX: F31.9 Bipolar disorder, unspecified (principal); E03.9 Hypothyroidism, unspecified; E78.00 Pure hypercholesterolemia, unspecified; G47.33 Obstructive sleep apnea (adult) (pediatric)
CPT/HCPCS: 36415; 80307; 81001; 87086; G0480; J3101; Q2036

== ENCOUNTER 2018-02-17 13:56 | Emergency (ER) | payer MEDICARE ==
[~2018-02-17 13:56] MED LIST changes: +BIOTENE473 ML PO; +DIVALPROEX SOD500 M2 PO; +FERROUS SULFAT325 M2 PO; +NEXIUM40 M1 PO; +ONE DAILY MULT1 EAC2 PO; +Remeron PO; +SEROQUEL50 M1 PO
[2018-02-17 14:33] VITALS: BP 112/80
--- NOTE | 2018-02-17 17:32 | ED GENERAL ADULT ---
History of Present Illness General Chief Complaint: Abdominal Pain/Flank Pain Stated Complaint: BLD IN STOOL X 1 Source: patient Exam Limitations: no limitations Vital Signs & Intake/Output Vital Signs & Intake/Output Vital Signs Date Time Temp Pulse Resp B/P B/P Pulse O2 O2 Flow FiO2 Mean Ox Delivery Rate 02/17 1433 98.0 78 18 112/80 98 Allergies Coded Allergies: Penicillins (Mild, "CHILDHOOD RASH" 11/18/16) carbamazepine (From TEGRETOL) (RASH 11/29/16) lithium (toxicity 11/29/16) Reconcile Medications Cholecalciferol (Vitamin D3) (Vitamin D) 1,000 UNIT TABLET 2 TAB PO DAILY SUPPLEMENT (Reported) Desvenlafaxine Succinate (Pristiq ER) 100 MG TAB.ER.24H 1 TAB PO QAM DEPRESSION (Reported) Divalproex Sodium 500 MG TABLET. 500 MG PO 0800,1999 MOOD STABILITY Esomeprazole (Nexium) 40 MG CAPSULE. 1 CAP PO QAM GI (Reported) Ferrous Sulfate 325 MG (65 MG IRON) TABLET. 325 MG PO BID IRON DEFICIENCY Levothyroxine Sodium 75 MCG TABLET 1 TAB PO QAM HYPOTHYROID (Reported) Lisinopril 10 MG TABLET 1 TAB PO QAM HEART HEALTH (Reported) Mirtazapine 15 MG TABLET 1 TAB PO QPM MENTAL HEALTH (Reported) Multivitamin (One Daily Multivitamin) 1 EACH TABLET 1 TAB PO DAILY VITAMIN DEFICIENYC Oxybutynin Chloride (Oxybutynin Chloride ER) 10 MG TAB.ER.24 1 TAB PO QAM BLADDER HEALTH (Reported) Simvastatin (Simvastatin*) 80 MG TABLET 1 TAB PO QPM CHOLESTEROL HEALTH ( Reported) Triage Note: PER PT WAS CONSTIPATED AND WAS TAKING ALOT OF MEDICATION BUT FINALLY TOOK A DUCOLAX ON FRIDAY, THEN WENT TO AND THERE WAS BLOOD IN IT, GOT SCARED BECAUSE I ONCE HAD TO HAVE A TRANSFUSION D/T BLOOD LOSS ALSO AFRAID TO EAT B/C I DONT WANT TO GET CONSTIPATED AGAIN Triage Nurses Notes Reviewed? yes Onset: Abrupt Duration: day(s): Timing: recent history HPI: 02/17/18 62-year-old female presents to the emergency department with 1 episode of bright red blood per rectum. According to the patient she said that she had an episode yesterday of 1 bright red blood per rectum bowel movement. She denies any abdominal pain or vomiting. She's had a negative colonoscopy this year. She denies any symptoms currently. Past History Travel History Traveled to [place] past 21 day No Medical History Any Pertinent Medical History? see below for history Neurological: seizure (?details unclear from history) Cardiovascular: hypertension, hyperlipidemia Respiratory: obstructive sleep apnea (uses CPAP), NO LONGER USING CPAP Gastrointestinal: NONE Hepatic: NONE Renal: urinary incontinence, S/P Acute renal failure in early 07/2016 related to too high a prescribed dose of Merriam (900mg daily instead of only 600mg/day or less); resolved on medical floor Musculoskeletal: NONE Psychiatric: bipolar disease, insomnia Endocrine: hypothyroidism, S/P recent hypercalcemia secondary to Merriam, per endocrine (Dr. Roberts) Blood Disorders: anemia Cancer(s): NONE [employer] ASSISTANT/Reproductive: NONE History of MRSA: No History of VRE: No History of CDIFF: No Influenza Vaccine: 08/11/15 Surgical History Surgical History: knee replacement (right 2011, left 2011) Psychosocial History Who do you live with Brother Services at Home None What is your primary language [place] Tobacco Use: Never used Family History Family History, If Any: grandfather Myocardial infarction Hx Contributory? No Review of Systems Review of Systems Constitutional: Denies: fever. EENTM: Reports: no symptoms. Respiratory: Denies: short of breath. Cardiovascular: Denies: chest pain. GI: Reports: bloody stool. Denies: abdominal pain, diarrhea. Genitourinary: Reports: no symptoms. Musculoskeletal: Reports: no symptoms. Skin: Reports: no symptoms. Neurological/Psychological: Reports: no symptoms. Hematologic/Endocrine: Denies: bleeding. Immunologic/Allergic: Reports: no symptoms. Physical Exam Physical Exam General Appearance: well developed/nourished, no apparent distress, alert, awake , anxious Head: atraumatic, normal appearance Eyes: Bilateral: normal appearance, PERRL, EOMI. Ears, Nose, Throat: normal pharynx, normal ENT inspection, hearing grossly normal Neck: normal inspection, supple Respiratory: normal breath sounds, chest non-tender, no respiratory distress Cardiovascular: regular rate/rhythm Peripheral Pulses: 4+ radial (R), 4+ radial (L) Gastrointestinal: soft, non-tender Rectal: heme negative stool Core Measures ACS in differential dx? No CVA/TIA Diagnosis: No Sepsis Present: No Sepsis Focused Exam Completed? No Progress Differential Diagnoses I considered the following diagnoses in my evaluation of the patient: [Internal hemorrhoid, external hemorrhoid, diverticulosis, other occult bleeding, coagulopathy] Plan of Care: Orders Procedure Date/time Status MISTAKE 02/17 1706 Active PARTIAL THROMBOPLASTIN TIME 02/17 1706 Complete PROTHROMBIN TIME 02/17 1706 Complete COMPREHENSIVE METABOLIC PANEL 02/17 1706 Active CBC WITHOUT DIFFERENTIAL 02/17 1706 Complete Laboratory Tests 02/17/18 1740: Sodium Pending, Potassium Pending, Chloride Pending, Carbon Dioxide Pending, Anion Gap Pending, BUN Pending, Creatinine Pending, BUN/Creatinine Ratio Pending , Glucose Pending, Calcium Pending, Total Bilirubin Pending, AST Pending, ALT Pending, Alkaline Phosphatase Pending, Total Protein Pending, Albumin Pending, Globulin Pending, Albumin/Globulin Ratio Pending, PT 12.8 H, INR 1.17, APTT 37, CBC w Diff NO MAN DIFF REQ, RBC 5.29, MCV 88.4, MCH 29.4, MCHC 33.2, RDW 14.0, MPV 8.7, Gran % 61.1, Lymphocytes % 27.0, Monocytes % 8.4, Eosinophils % 3.1, Basophils % 0.4, Absolute Granulocytes 3.2, Absolute Lymphocytes 1.4, Absolute Monocytes 0.4, Absolute Eosinophils 0.2, Absolute Basophils 0 Initial ED EKG: none Departure Departure Disposition: HOME OR SELF CARE Condition: Stable Clinical Impression Primary Impression: Rectal bleeding Referrals: Emily Carias MD (PCP/Family) Departure Forms: Customer Survey General Discharge Information Comments Patient's labs are unremarkable. Abdomen is soft and nontender. Rectal is guaiac negative. Will follow-up with her parachute mender this week or return to the emergency department if symptoms return. Use Tucks pads to wipe. Critical Care Note Critical Care Note Critical Care Time: non-applicable
[2018-02-17 18:16] LABS: ABSOLUTE BASOPHIL COUNT 0 /CUMM (0.0-0.2); ABSOLUTE EOSINOPHIL COUNT 0.2 /CUMM (0.0-0.7); ABSOLUTE GRANULOCYTE CT 3.2 /CUMM (1.4-6.5); ABSOLUTE LYMPH COUNT 1.4 /CUMM (1.2-3.4); ABSOLUTE MONOCYTE COUNT 0.4 /CUMM (0.10-0.60); BASOPHIL % 0.4 % (0.0-2.0); EOSINOPHIL % 3.1 % (0-5); GRANULOCYTE % 61.1 % (42.2-75.2); HEMATOCRIT 46.8 % (37-47); MEAN CORPUSCULAR HGB 29.4 PG (27.0-31.0); MEAN CORPUSCULAR HGB CONC 33.2 G/DL (33.0-37.0); MEAN CORPUSCULAR VOLUME 88.4 FL (81.0-99.0); MEAN PLATELET VOLUME 8.7 FL (7.4-10.4); PLATELET COUNT 238 /CUMM (130-400); RED BLOOD CELL CT 5.29 /CUMM (4.20-5.40); WHITE BLOOD CELL COUNT 5.2 /CUMM (4.8-10.8)
[2018-02-17 18:17] LABS: PT 12.8 SEC (9.4-12.5); PTT 37 SEC (25-37)
== END 2018-02-17 18:52 ==
LOC: ERH 13:56
PROVIDERS: Physician Assistant Medical
DX: K62.5 Hemorrhage of anus and rectum (principal)